=== PATIENT | female | born 1935 | race Caucasian/White ===

== ENCOUNTER 2016-04-29 08:20 | Outpatient (CLI) | payer MEDICARE, BC ==
[~2016-04-29] VITALS: Ht 160 cm; Wt 74.5 kg
[~2016-04-29 08:20] MED LIST: ACTOS30 MG PO; AFEDITAB; AFEDITAB CR60 MG PO; ALDACTONE 25MG25 M1 PO; ALDACTONE50 MG PO; ASPIRIN 81M81 MG/TA2 PO; ASPIRIN E.C. 8181 MG PO; BIOTIN1000 MCG PO; BYETTA; CALCIMIN-300300 MG PO; CALCIUM 1200 601 SGL PO; CALCIUM600 M2 PO; CENTRUM SILVER1 TA1 PO; CENTRUM SILVER1 TA3 PO; CENTRUM SILVER1 TAB PO; D BIOTIN PO; DIOVAN HCT 12.51 TA1 PO; DIOVAN/HCT 12.51 TA1 PO; DIOVAN160 MG PO; DIOVAN320 MG PO; FLEXERIL 1010 MG/TAB PO; FLEXERIL5 MG PO; FOLIC ACID 40400 MCG PO; FUROSEMIDE20 MG PO; GLUCOSAMINE; GLUCOSAMINE & C1 TA1 PO; GLUCOSAMINE & C1 TER PO; HUMULIN 70/30 PE3 ML SC; HUMULIN 70/3100 U/ML IJ; HUMULIN 70/3100 U/ML SC; IMODIUM 2MG CAPS2 MG PO; INSHUMULIN7030 SC; INSULIN 70/3100 U/ML SQ; IRON325 M1 PO; LASIX 20MG TABL20 MG PO; LASIX20 MG PO; LEVSIN0.125 M1 PO; METOPROLOL25 MG PO; METOPROLOL50 MG PO; MUCINEX 60600 MG/TA1 PO; MULTIPLE VITAMI1 CAP PO; MVI; NAPROSYN375 MG PO; NORVASC 10MG10 MG PO; NOVOLOG MIX 70/10 ML SQ; PROTONIX 40MG T40 MG PO; ROXICODONE 55 MG/TAB PO; SOME ANTIBIOTIC; SPIRONOLACTONE50 MG PO; TAMIFLU 75MG75 MG PO; TOPROL XL 25MG25 MG PO; TOPROL XL 50MG50 MG PO; TOPROL XL25 MG PO; TUSS PO; VICODIN 5/5001 UDTAB PO; VITAMIN C500 MG PO; VITAMIN D 1001000 IU PO; VITAMIN D32000 IU PO; ZITHROMAX 250M250 MG PO; ZYLOPRIM 100MG100 MG PO; ZYLOPRIM 300MG300 MG PO
[2016-04-29] MEDS ORDERED: ZANTAC 150150 MG PO (09:03)
[2016-04-29 09:07] VITALS: BP 153/84; PULSE 71
[2016-04-29 09:27] LABS: HEMATOCRIT 30.7 % (37.0-47.0); HEMOGLOBIN 9.9 g/dl (12.5-16.0); INR 1.2 (0.8-3.0); MEAN CELL VOLUME 93 fl (80.0-100.0); MEAN CORPUSCULAR HEMOGLOBIN 30 pg (27.0-31.0); MEAN CORPUSCULAR HGB CONC 32 g/dl (33.0-37.0); MEAN PLATELET VOLUME 11.1 fl (7.4-10.4); PLATELET COUNT 91 K/mm3 (130-400); PROTHROMBIN TIME 13.5 SECONDS (9.7-12.8); RED BLOOD COUNT 3.32 M/mm3 (4.10-5.30); REDCELL DISTRIBUTION WIDTH-CV 13.9 % (11.5-14.5); WHITE BLOOD COUNT 4.6 K/mm3 (4.8-10.8)
[2016-04-29 12:15] VITALS: BP 116/57; PULSE 70; TEMP 98.2
[2016-04-29 14:30] VITALS: BP 172/53; PULSE 70; TEMP 98.2
[2016-10-01] MEDS ORDERED: ZYLOPRIM 100MG100 MG PO (09:27)
== END 2016-04-29 15:00 | disposition home or self-care (01) ==
LOC: COL.RAD 08:20
PROVIDERS: Nurse Practitioner Family
DX: K74.69 Other cirrhosis of liver (principal)
CPT/HCPCS: P9047

== ENCOUNTER → 2016-07-09 | Outpatient (CLI) | payer MEDICARE, BC ==
[~2016-07-09] VITALS: Ht 160 cm; Wt 77.7 kg
[~2016-07-09] MED LIST changes: +OMEGA-3 FISH1000 MG PO; +ZANTAC 150150 MG PO
[2016-07-09 13:34] VITALS: BP 156/86; PULSE 74
[2016-07-09 13:55] LABS: INR 1.2 (0.8-3.0); PROTHROMBIN TIME 13.6 SECONDS (9.7-12.8)
[2016-07-09 15:51] VITALS: BP 165/82; PULSE 76
== END ==
LOC: COL.RAD 13:08
PROVIDERS: Nurse Practitioner Family
DX: R18.8 Other ascites (principal); K74.69 Other cirrhosis of liver
CPT/HCPCS: 19804

== ENCOUNTER → 2016-08-26 | Outpatient (CLI) | payer MEDICARE, BC ==
[~2016-08-26] VITALS: Ht 160 cm; Wt 77.3 kg
[2016-08-26 09:22] VITALS: BP 165/82; PULSE 74
[2016-08-26 10:50] VITALS: BP 146/60; PULSE 65
== END ==
LOC: COL.RAD 09:00
DX: R18.8 Other ascites (principal)
CPT/HCPCS: 19804

== ENCOUNTER → 2016-10-01 | Outpatient (CLI) | payer MEDICARE, BC ==
[~2016-10-01] VITALS: Ht 160 cm; Wt 75.0 kg
[2016-10-01 09:30] VITALS: BP 175/83; PULSE 61
[2016-10-01 10:55] VITALS: BP 161/68; PULSE 66
== END ==
LOC: COL.RAD 09:08
DX: R18.8 Other ascites (principal)
CPT/HCPCS: 19804

== ENCOUNTER → 2016-11-01 | Outpatient (CLI) | payer MEDICARE, BC ==
[~2016-11-01] VITALS: Ht 160 cm; Wt 72.8 kg
[2016-11-01 08:49] VITALS: BP 142/77; PULSE 62
[2016-11-01 11:50] VITALS: BP 152/79; PULSE 62
== END ==
LOC: COL.RAD 08:33
DX: R18.8 Other ascites (principal)
CPT/HCPCS: 19804

== ENCOUNTER 2016-11-14 11:53 | Inpatient (IN) | payer MEDICARE, BC ==
[2016-11-14] VITALS (283 sets, daily range): BP systolic 120–143; BP diastolic 48–63; PULSE 70–71; TEMP 97–98.1; O2SAT 79–100
[~2016-11-14] VITALS: Ht 160 cm; Wt 67.7 kg
[~2016-11-14 11:53] MED LIST changes: -OMEGA-3 FISH1000 MG PO
[2016-11-14 12:58] LABS: BASO % 0.2 % (0.0-2.0); EOS % 0.1 % (0-4.0); GRAN # 8.8 (1.4-6.5); GRAN % 84.5 % (42.2-75.2); LYMPH % 9.5 % (20.0-51.0); MEAN CELL VOLUME 91 fl (80.0-100.0); MEAN CORPUSCULAR HGB CONC 34 g/dl (33.0-37.0); MEAN PLATELET VOLUME 11.8 fl (7.4-10.4); MONO # 0.5 (0.1-0.6); MONO % 5.2 % (1.7-9.3); PLATELET COUNT 94 K/mm3 (130-400); RED BLOOD COUNT 3.74 M/mm3 (4.10-5.30); REDCELL DISTRIBUTION WIDTH-CV 15.2 % (11.5-14.5); WHITE BLOOD COUNT 10.4 K/mm3 (4.8-10.8)
[2016-11-14 13:00] LABS: HEMATOCRIT 34.2 % (37.0-47.0); HEMOGLOBIN 11.6 g/dl (12.5-16.0); MEAN CORPUSCULAR HEMOGLOBIN 31 pg (27.0-31.0)
[2016-11-14 13:07] LABS: ADJUSTED CALCIUM 9.3 mg/dL (8.4-10.2); ALBUMIN 3.5 gm/dL (3.5-5.0); BILIRUBIN,TOTAL 1.2 mg/dL (0.0-1.0); CALCIUM 8.9 mg/dL (8.4-10.2); CREATININE, serum 3.16 mg/dL (0.52-1.25); TOTAL PROTEIN 6.8 gm/dL (6.4-8.2)
[2016-11-14 15:26] LABS: HYALINE CAST >12 /lpf; PH 5 (5-8); SQUAMOUS EPITHELIAL >50 /hpf; URINE APPEARANCE Turbid; URINE BACTERIA Moderate /hpf; URINE BILIRUBIN Negative (NEGATIVE); URINE BLOOD 1+ (NEGATIVE); URINE COLOR Amber; URINE GLUCOSE Negative (NEGATIVE); URINE KETONE Negative (NEGATIVE); URINE UROBILINOGEN Negative (NEGATIVE); URINE WBC >50 /hpf
[2016-11-14 16:26] LABS: INR 1.1 (0.8-3.0); PROTHROMBIN TIME 12.6 SECONDS (9.7-12.8)
[2016-11-14 16:29] LABS: PARTIAL THROMBOPLASTIN TIME 20.8 SECONDS (26.0-37.0)
[2016-11-14] MEDS ORDERED: OMEGA-3 FISH1000 MG PO (19:54)
[2016-11-15] VITALS (1293 sets, daily range): BP systolic 105–122; BP diastolic 45–52; PULSE 69–79; TEMP 97.3–98.7; O2SAT 73–100
[2016-11-15 05:59] LABS: MEAN CELL VOLUME 95 fl (80.0-100.0); MEAN CORPUSCULAR HGB CONC 33 g/dl (33.0-37.0); MEAN PLATELET VOLUME 11.4 fl (7.4-10.4); RED BLOOD COUNT 2.93 M/mm3 (4.10-5.30); REDCELL DISTRIBUTION WIDTH-CV 15.4 % (11.5-14.5); WHITE BLOOD COUNT 4.8 K/mm3 (4.8-10.8)
[2016-11-15 06:06] LABS: ADJUSTED CALCIUM 8.8 mg/dL (8.4-10.2); ALBUMIN 2.6 gm/dL (3.5-5.0); BILIRUBIN,TOTAL 0.7 mg/dL (0.0-1.0); CALCIUM 7.7 mg/dL (8.4-10.2); CREATININE, serum 2.88 mg/dL (0.52-1.25); HEMATOCRIT 27.7 % (37.0-47.0); MEAN CORPUSCULAR HEMOGLOBIN 31 pg (27.0-31.0); POTASSIUM 4.9 mmol/L (3.4-5.0); TOTAL PROTEIN 5.5 gm/dL (6.4-8.2)
[2016-11-15 06:07] LABS: INR 1.3 (0.8-3.0); PLATELET COUNT 48 K/mm3 (130-400); PROTHROMBIN TIME 14.3 SECONDS (9.7-12.8)
[2016-11-15 06:08] LABS: ADD PATHOLOGY DIFF REVIEW NO
[2016-11-15 06:45] LABS: BAND 19 % (0-10); EOSINOPHIL 1 % (0-4); NEUTROPHILS 73 % (42.0-75.2); PLATELET ESTIMATE DECREASED (NORMAL); TOTAL CELLS COUNTED 100
[2016-11-15 18:49] LABS: CALCIUM 7.8 mg/dL (8.4-10.2); CREATININE, serum 2.84 mg/dL (0.52-1.25); POTASSIUM 4.3 mmol/L (3.4-5.0)
[2016-11-16] VITALS (663 sets, daily range): BP systolic 110–149; BP diastolic 47–75; PULSE 63–76; TEMP 97.4–98.4; O2SAT 69–100
[2016-11-16 09:16] LABS: BASO % 0.2 % (0.0-2.0); GRAN # 4.8 (1.4-6.5); GRAN % 85.8 % (42.2-75.2); HEMATOCRIT 27.8 % (37.0-47.0); HEMOGLOBIN 9.4 g/dl (12.5-16.0); LYMPH # 0.4 (1.2-3.4); LYMPH % 6.3 % (20.0-51.0); MEAN CELL VOLUME 91 fl (80.0-100.0); MEAN CORPUSCULAR HEMOGLOBIN 31 pg (27.0-31.0); MEAN CORPUSCULAR HGB CONC 34 g/dl (33.0-37.0); MEAN PLATELET VOLUME 11.6 fl (7.4-10.4); MONO # 0.4 (0.1-0.6); MONO % 7.2 % (1.7-9.3); PLATELET COUNT 61 K/mm3 (130-400); RED BLOOD COUNT 3.05 M/mm3 (4.10-5.30); REDCELL DISTRIBUTION WIDTH-CV 15.3 % (11.5-14.5); WHITE BLOOD COUNT 5.6 K/mm3 (4.8-10.8)
[2016-11-16 09:31] LABS: ADJUSTED CALCIUM 8.7 mg/dL (8.4-10.2); ALBUMIN 2.5 gm/dL (3.5-5.0); BILIRUBIN,TOTAL 0.6 mg/dL (0.0-1.0); CALCIUM 7.5 mg/dL (8.4-10.2); CREATININE, serum 2.65 mg/dL (0.52-1.25); POTASSIUM 4.5 mmol/L (3.4-5.0); TOTAL PROTEIN 5.5 gm/dL (6.4-8.2)
[2016-11-16 19:00] LABS: CALCIUM 7.8 mg/dL (8.4-10.2); CREATININE, serum 2.76 mg/dL (0.52-1.25); POTASSIUM 4.8 mmol/L (3.4-5.0)
[2016-11-17 01:45] VITALS: BP 115/45; PULSE 73; TEMP 98.2
[2016-11-17 05:15] VITALS: BP 134/61; PULSE 73; TEMP 97.7
[2016-11-17 06:40] LABS: BASO % 0.3 % (0.0-2.0); EOS % 0.5 % (0-4.0); GRAN % 80.2 % (42.2-75.2); LYMPH # 0.4 (1.2-3.4); LYMPH % 9.5 % (20.0-51.0); MEAN CELL VOLUME 90 fl (80.0-100.0); MEAN CORPUSCULAR HGB CONC 34 g/dl (33.0-37.0); MEAN PLATELET VOLUME 12.3 fl (7.4-10.4); MONO # 0.3 (0.1-0.6); PLATELET COUNT 55 K/mm3 (130-400); RED BLOOD COUNT 2.71 M/mm3 (4.10-5.30); WHITE BLOOD COUNT 3.8 K/mm3 (4.8-10.8)
[2016-11-17 06:46] LABS: HEMATOCRIT 24.5 % (37.0-47.0); HEMOGLOBIN 8.3 g/dl (12.5-16.0); MEAN CORPUSCULAR HEMOGLOBIN 31 pg (27.0-31.0)
[2016-11-17 06:50] LABS: ADJUSTED CALCIUM 8.9 mg/dL (8.4-10.2); ALBUMIN 2.2 gm/dL (3.5-5.0); BILIRUBIN,TOTAL 0.4 mg/dL (0.0-1.0); CALCIUM 7.5 mg/dL (8.4-10.2); CREATININE, serum 2.65 mg/dL (0.52-1.25); POTASSIUM 4.5 mmol/L (3.4-5.0)
[2016-11-17 09:28] VITALS: BP 111/85; PULSE 72; TEMP 97.6
[2016-11-17 11:41] LABS: PH 5 (5-8); SQUAMOUS EPITHELIAL 0-2 /hpf; URINE APPEARANCE Cloudy; URINE BACTERIA Rare /hpf; URINE BILIRUBIN Negative (NEGATIVE); URINE BLOOD 2+ (NEGATIVE); URINE COLOR Yellow; URINE GLUCOSE Negative (NEGATIVE); URINE KETONE Negative (NEGATIVE); URINE RBC 20-50 /hpf; URINE UROBILINOGEN Negative (NEGATIVE); URINE WBC 20-50 /hpf
[2016-11-17 13:47] VITALS: BP 167/66; PULSE 71; TEMP 98.1
[2016-11-17 17:23] VITALS: BP 157/66; PULSE 78; TEMP 98.4
[2016-11-17 22:16] VITALS: BP 129/59; PULSE 76; TEMP 98.2
[2016-11-18 06:03] VITALS: BP 125/57; PULSE 71; TEMP 98.4
[2016-11-18 09:19] LABS: EOS # 0.1 (0.0-0.7); EOS % 2.3 % (0-4.0); GRAN # 3.4 (1.4-6.5); GRAN % 80.1 % (42.2-75.2); LYMPH # 0.4 (1.2-3.4); LYMPH % 8.2 % (20.0-51.0); MEAN CELL VOLUME 92 fl (80.0-100.0); MEAN CORPUSCULAR HGB CONC 33 g/dl (33.0-37.0); MEAN PLATELET VOLUME 12.4 fl (7.4-10.4); MONO # 0.4 (0.1-0.6); MONO % 8.9 % (1.7-9.3); PLATELET COUNT 64 K/mm3 (130-400); REDCELL DISTRIBUTION WIDTH-CV 14.9 % (11.5-14.5); WHITE BLOOD COUNT 4.3 K/mm3 (4.8-10.8)
[2016-11-18 09:21] LABS: HEMATOCRIT 27.7 % (37.0-47.0); HEMOGLOBIN 9.2 g/dl (12.5-16.0); MEAN CORPUSCULAR HEMOGLOBIN 31 pg (27.0-31.0)
[2016-11-18 09:25] VITALS: BP 137/70; PULSE 73; TEMP 98.2
[2016-11-18 09:35] LABS: ADJUSTED CALCIUM 8.7 mg/dL (8.4-10.2); ALBUMIN 2.5 gm/dL (3.5-5.0); BILIRUBIN,TOTAL 0.5 mg/dL (0.0-1.0); CALCIUM 7.5 mg/dL (8.4-10.2); CREATININE, serum 2.4 mg/dL (0.52-1.25); TOTAL PROTEIN 5.6 gm/dL (6.4-8.2)
[2016-11-18 13:14] VITALS: BP 147/67; PULSE 79; TEMP 97.8
== END 2016-11-18 14:43 | disposition home or self-care (01) | DRG 330 ==
LOC: COL.ER 11:53 → ICU 19:05 → IMCU 11-16 08:34 → ICU 11-16 08:34 → SURG 11-16 12:26
PROVIDERS: Family Medicine; Internal Medicine; Surgery
PROC: 0W9G0ZZ Drainage of Peritoneal Cavity, Open Approach (ICD-10-PCS; 2016-11-14)
PROC: 0DB80ZZ Excision of Small Intestine, Open Approach (ICD-10-PCS; principal; 2016-11-14 17:30)
PROC: 0WQF0ZZ Repair Abdominal Wall, Open Approach (ICD-10-PCS; 2016-11-14 17:30)
DX: K43.6 Other and unspecified ventral hernia with obstruction, without gangrene (principal); N18.4 Chronic kidney disease, stage 4 (severe); E87.2 Acidosis; N17.9 Acute kidney failure, unspecified; R18.8 Other ascites; E87.1 Hypo-osmolality and hyponatremia; N39.0 Urinary tract infection, site not specified; Z66 Do not resuscitate; K72.90 Hepatic failure, unspecified without coma; I12.9 Hypertensive chronic kidney disease with stage 1 through stage 4 chronic kidney disease, or unspecified chronic kidney disease; E11.22 Type 2 diabetes mellitus with diabetic chronic kidney disease; D50.0 Iron deficiency anemia secondary to blood loss (chronic); K74.69 Other cirrhosis of liver; D63.1 Anemia in chronic kidney disease
CPT/HCPCS: 99222; 99223; 99232-AI; A4217; A4315; J0690; J0696; J1100; J1170; J1815; J2060; J2270; J2370; J2405; J2704; J2710; J3010; J7030; J7050; J7131

== ENCOUNTER → 2016-11-14 | Day surgery (SDC) | payer MEDICARE, BC | LOC: SDCO 17:32 | DX: K43.6 Other and unspecified ventral hernia with obstruction, without gangrene (principal); R18.8 Other ascites; K74.69 Other cirrhosis of liver; N17.9 Acute kidney failure, unspecified; R73.9 Hyperglycemia, unspecified; E87.2 Acidosis; I10 Essential (primary) hypertension; L83 Acanthosis nigricans; I12.9 Hypertensive chronic kidney disease with stage 1 through stage 4 chronic kidney disease, or unspecified chronic kidney disease; E11.22 Type 2 diabetes mellitus with diabetic chronic kidney disease; N18.4 Chronic kidney disease, stage 4 (severe); N39.0 Urinary tract infection, site not specified; Z66 Do not resuscitate | CPT/HCPCS: 99222 ==

== ENCOUNTER 2016-11-21 12:23 | Observation (INO) | payer MEDICARE, BC ==
[~2016-11-21] VITALS: Ht 160 cm; Wt 64.1 kg
[~2016-11-21 12:23] MED LIST changes: +OMEGA-3 FISH1000 MG PO
[2016-11-21 13:18] LABS: BASO % 0.2 % (0.0-2.0); EOS # 0.1 (0.0-0.7); GRAN # 4.9 (1.4-6.5); GRAN % 79.9 % (42.2-75.2); LYMPH # 0.6 (1.2-3.4); LYMPH % 9.3 % (20.0-51.0); MEAN CELL VOLUME 94 fl (80.0-100.0); MEAN CORPUSCULAR HGB CONC 32 g/dl (33.0-37.0); MEAN PLATELET VOLUME 11.9 fl (7.4-10.4); MONO # 0.5 (0.1-0.6); MONO % 7.8 % (1.7-9.3); PLATELET COUNT 103 K/mm3 (130-400); RED BLOOD COUNT 3.28 M/mm3 (4.10-5.30); REDCELL DISTRIBUTION WIDTH-CV 14.6 % (11.5-14.5); WHITE BLOOD COUNT 6.1 K/mm3 (4.8-10.8)
[2016-11-21 13:21] LABS: HEMATOCRIT 30.9 % (37.0-47.0); MEAN CORPUSCULAR HEMOGLOBIN 30 pg (27.0-31.0)
[2016-11-21 13:35] VITALS: BP 152/74; PULSE 99
[2016-11-21 13:40] LABS: PH 5 (5-8); URINE APPEARANCE Hazy; URINE BACTERIA None Seen /hpf; URINE BILIRUBIN Negative (NEGATIVE); URINE BLOOD 1+ (NEGATIVE); URINE COLOR Yellow; URINE GLUCOSE Negative (NEGATIVE); URINE KETONE Negative (NEGATIVE); URINE UROBILINOGEN Negative (NEGATIVE); URINE WBC None Seen /hpf
[2016-11-21 13:40] LABS: ALBUMIN 2.8 gm/dL (3.5-5.0); BILIRUBIN,TOTAL 0.6 mg/dL (0.0-1.0); CREATININE, serum 2.36 mg/dL (0.52-1.25); MAGNESIUM 1.6 mg/dL (1.6-2.3); PHOSPHOROUS 3.8 mg/dL (2.5-4.5); POTASSIUM 4.2 mmol/L (3.4-5.0); TOTAL PROTEIN 5.9 gm/dL (6.4-8.2)
[2016-11-21 14:08] LABS: INR 1.1 (0.8-3.0); PROTHROMBIN TIME 12.5 SECONDS (9.7-12.8)
[2016-11-21 14:11] LABS: PARTIAL THROMBOPLASTIN TIME 29.5 SECONDS (26.0-37.0)
[2016-11-21 17:29] VITALS: BP 144/73; PULSE 93
[2016-11-21 21:12] VITALS: BP 146/69; PULSE 91; TEMP 97.7
[2016-11-22] VITALS (7 sets, daily range): BP systolic 136–180; BP diastolic 50–73; PULSE 70–107; TEMP 97.5–98.5
[2016-11-22 06:52] LABS: BASO % 0.3 % (0.0-2.0); EOS # 0.1 (0.0-0.7); EOS % 3.3 % (0-4.0); GRAN % 76.5 % (42.2-75.2); LYMPH # 0.4 (1.2-3.4); LYMPH % 10.2 % (20.0-51.0); MEAN CELL VOLUME 94 fl (80.0-100.0); MEAN CORPUSCULAR HGB CONC 32 g/dl (33.0-37.0); MEAN PLATELET VOLUME 11.5 fl (7.4-10.4); MONO # 0.3 (0.1-0.6); MONO % 8.7 % (1.7-9.3); PLATELET COUNT 91 K/mm3 (130-400); RED BLOOD COUNT 2.75 M/mm3 (4.10-5.30); REDCELL DISTRIBUTION WIDTH-CV 14.5 % (11.5-14.5); WHITE BLOOD COUNT 3.9 K/mm3 (4.8-10.8)
[2016-11-22 06:58] LABS: HEMATOCRIT 25.7 % (37.0-47.0); HEMOGLOBIN 8.3 g/dl (12.5-16.0); MEAN CORPUSCULAR HEMOGLOBIN 30 pg (27.0-31.0)
[2016-11-22 07:01] LABS: ADJUSTED CALCIUM 8.9 mg/dL (8.4-10.2); ALBUMIN 2.3 gm/dL (3.5-5.0); BILIRUBIN,TOTAL 0.4 mg/dL (0.0-1.0); CALCIUM 7.5 mg/dL (8.4-10.2); CREATININE, serum 2.26 mg/dL (0.52-1.25); POTASSIUM 4.3 mmol/L (3.4-5.0); TOTAL PROTEIN 5.2 gm/dL (6.4-8.2)
[2016-11-22 14:00] LABS: PERITONEAL FLUID RBC 1000 /mm3 (0-0)
[2016-11-23 03:40] VITALS: BP 126/56; PULSE 71; TEMP 98.2
[2016-11-23 07:24] LABS: EOS # 0.1 (0.0-0.7); GRAN # 2.3 (1.4-6.5); GRAN % 76.4 % (42.2-75.2); LYMPH # 0.3 (1.2-3.4); LYMPH % 11.1 % (20.0-51.0); MEAN CELL VOLUME 95 fl (80.0-100.0); MEAN CORPUSCULAR HGB CONC 32 g/dl (33.0-37.0); MEAN PLATELET VOLUME 11.6 fl (7.4-10.4); MONO # 0.3 (0.1-0.6); MONO % 8.8 % (1.7-9.3); PLATELET COUNT 87 K/mm3 (130-400); RED BLOOD COUNT 2.47 M/mm3 (4.10-5.30); REDCELL DISTRIBUTION WIDTH-CV 14.2 % (11.5-14.5)
[2016-11-23 07:32] LABS: HEMATOCRIT 23.4 % (37.0-47.0); HEMOGLOBIN 7.5 g/dl (12.5-16.0); MEAN CORPUSCULAR HEMOGLOBIN 30 pg (27.0-31.0)
[2016-11-23 07:44] LABS: CALCIUM 7.8 mg/dL (8.4-10.2); CREATININE, serum 2.21 mg/dL (0.52-1.25); POTASSIUM 4.2 mmol/L (3.4-5.0)
[2016-11-23 08:13] VITALS: BP 144/55; PULSE 65; TEMP 97.9
[2016-11-23] MEDS ORDERED: ALDACTONE50 MG PO (10:00)
== END 2016-11-23 13:35 | disposition home health service (06) ==
LOC: COL.ER 12:23 → MEDICAL 18:31
PROVIDERS: Emergency Medicine; Family Medicine; Physician Assistant
DX: R18.8 Other ascites (principal); D64.9 Anemia, unspecified; D69.6 Thrombocytopenia, unspecified; I10 Essential (primary) hypertension; K72.90 Hepatic failure, unspecified without coma; M10.9 Gout, unspecified; E86.0 Dehydration; K29.70 Gastritis, unspecified, without bleeding; R53.81 Other malaise; N18.9 Chronic kidney disease, unspecified; Z90.710 Acquired absence of both cervix and uterus; Z90.49 Acquired absence of other specified parts of digestive tract
CPT/HCPCS: 99222-AI; 99233-AI; 99239; G0378; G8978-GP; G8979-GP; J1650; J2405; J7030; P9047

== ENCOUNTER → 2016-12-31 | Outpatient (CLI) | payer MEDICARE, BC ==
[~2016-12-31] VITALS: Ht 160 cm; Wt 60.9 kg
[~2016-12-31] MED LIST changes: +PROBIOTIC FORMU1 CAP PO; +[UNRECOGNIZED DRUG - OTHER] PO
[2016-12-31 09:31] VITALS: BP 124/68; PULSE 75
[2016-12-31 10:55] VITALS: BP 125/64; PULSE 76
== END ==
LOC: COL.RAD 09:10
DX: R18.8 Other ascites (principal)

== ENCOUNTER → 2017-01-25 | Outpatient (CLI) | payer MEDICARE, BC ==
[2017-01-25 13:13] VITALS: BP 127/77; PULSE 85
[2017-01-25 15:10] VITALS: BP 123/58; PULSE 76
== END ==
LOC: COL.RAD 12:50
DX: K74.69 Other cirrhosis of liver (principal); R18.8 Other ascites; R27.0 Ataxia, unspecified; I63.9 Cerebral infarction, unspecified; G31.9 Degenerative disease of nervous system, unspecified; R06.00 Dyspnea, unspecified; R63.8 Other symptoms and signs concerning food and fluid intake

== ENCOUNTER → 2017-02-09 | Outpatient (CLI) | payer MEDICARE, BC ==
[~2017-02-09] VITALS: Ht 160 cm; Wt 67.9 kg
[2017-02-09 13:03] VITALS: BP 132/74; PULSE 70
[2017-02-09 14:45] VITALS: BP 137/60; PULSE 69
== END ==
LOC: COL.RAD 12:48
DX: K74.69 Other cirrhosis of liver (principal); R18.8 Other ascites

== ENCOUNTER → 2017-02-28 | Outpatient (CLI) | payer MEDICARE, BC ==
[~2017-02-28] VITALS: Ht 160 cm; Wt 70.8 kg
[~2017-02-28] MED LIST changes: +LASIX 40MG TABL40 MG PO
[2017-02-28 11:21] VITALS: BP 146/60; PULSE 74
[2017-02-28 13:25] VITALS: BP 124/65; PULSE 70
== END ==
LOC: COL.RAD 11:08
DX: R18.8 Other ascites (principal)
CPT/HCPCS: 19804

== ENCOUNTER → 2017-03-23 | Outpatient (CLI) | payer MEDICARE, BC ==
[~2017-03-23] VITALS: Ht 160 cm; Wt 71.7 kg
[2017-03-23 13:20] VITALS: BP 111/66; PULSE 74
[2017-03-23 15:40] VITALS: BP 112/58; PULSE 69
== END ==
LOC: COL.RAD 12:57
DX: K74.69 Other cirrhosis of liver (principal)
CPT/HCPCS: 19804

== ENCOUNTER 2017-04-10 12:05 | Inpatient (IN) | payer MEDICARE, BC ==
[~2017-04-10] VITALS: Ht 160 cm; Wt 66.0 kg
[2017-04-10 12:53] LABS: BASO % 0.2 % (0.0-2.0); EOS % 0.5 % (0-4.0); GRAN # 4.3 (1.4-6.5); GRAN % 73.2 % (42.2-75.2); LYMPH # 1.2 (1.2-3.4); LYMPH % 19.9 % (20.0-51.0); MEAN CELL VOLUME 94 fl (80.0-100.0); MEAN CORPUSCULAR HGB CONC 33 g/dl (33.0-37.0); MONO # 0.3 (0.1-0.6); MONO % 5.7 % (1.7-9.3); PLATELET COUNT 107 K/mm3 (130-400); REDCELL DISTRIBUTION WIDTH-CV 14.7 % (11.5-14.5)
[2017-04-10 12:54] LABS: HEMATOCRIT 32.9 % (37.0-47.0); HEMOGLOBIN 10.8 g/dl (12.5-16.0); MEAN CORPUSCULAR HEMOGLOBIN 31 pg (27.0-31.0)
[2017-04-10 12:58] LABS: PROTHROMBIN TIME 11.3 SECONDS (9.7-12.8)
[2017-04-10 13:02] LABS: PARTIAL THROMBOPLASTIN TIME 16.6 SECONDS (26.0-37.0)
[2017-04-10 13:05] LABS: ALBUMIN 3.1 gm/dL (3.5-5.0); BILIRUBIN,TOTAL 0.5 mg/dL (0.0-1.0); CALCIUM 8.5 mg/dL (8.4-10.2); CREATININE, serum 3.13 mg/dL (0.52-1.25); POTASSIUM 4.4 mmol/L (3.4-5.0); TOTAL PROTEIN 6.5 gm/dL (6.4-8.2)
[2017-04-10 13:18] LABS: TROPONIN-I 0.133 ng/mL (0.000-0.034)
[2017-04-10] MEDS ORDERED: LASIX 20MG TABL20 MG PO (13:38)
[2017-04-10] MEDS ORDERED: TOPROL XL 25MG25 MG PO (13:40)
[2017-04-10] MEDS ORDERED: VENTOLIN0.09 MG IH (13:42)
[2017-04-10 16:00] VITALS: BP 105/51; PULSE 89; TEMP 98
[2017-04-10 16:28] VITALS: BP 124/67; PULSE 87; TEMP 98.2
[2017-04-10 20:00] VITALS: BP 103/55; PULSE 75; TEMP 98.3
[2017-04-11 02:07] VITALS: BP 118/43; PULSE 81; TEMP 98.4
[2017-04-11 05:19] VITALS: BP 109/43; PULSE 84; TEMP 97
[2017-04-11 07:54] LABS: BASO % 0.3 % (0.0-2.0); EOS % 0.8 % (0-4.0); GRAN # 2.6 (1.4-6.5); GRAN % 71.6 % (42.2-75.2); LYMPH # 0.7 (1.2-3.4); LYMPH % 19.9 % (20.0-51.0); MEAN CELL VOLUME 94 fl (80.0-100.0); MEAN CORPUSCULAR HGB CONC 33 g/dl (33.0-37.0); MEAN PLATELET VOLUME 11.5 fl (7.4-10.4); MONO # 0.3 (0.1-0.6); MONO % 7.1 % (1.7-9.3); PLATELET COUNT 73 K/mm3 (130-400); RED BLOOD COUNT 2.91 M/mm3 (4.10-5.30); REDCELL DISTRIBUTION WIDTH-CV 14.6 % (11.5-14.5)
[2017-04-11 08:01] LABS: CALCIUM 8.1 mg/dL (8.4-10.2); CREATININE, serum 2.99 mg/dL (0.52-1.25); POTASSIUM 4.6 mmol/L (3.4-5.0)
[2017-04-11 08:04] LABS: HEMATOCRIT 27.4 % (37.0-47.0); HEMOGLOBIN 9.1 g/dl (12.5-16.0); MEAN CORPUSCULAR HEMOGLOBIN 31 pg (27.0-31.0)
[2017-04-11 10:05] VITALS: BP 118/48; PULSE 81; TEMP 98
[2017-04-11 13:45] VITALS: BP 121/54; PULSE 75; TEMP 98
[2017-04-11 17:36] VITALS: BP 141/75; PULSE 88; TEMP 97.1
[2017-04-11 22:14] VITALS: BP 115/68; PULSE 77; TEMP 97.4
[2017-04-12 02:22] VITALS: BP 145/51; PULSE 87; TEMP 98.5
[2017-04-12 06:00] VITALS: BP 113/37; PULSE 78; TEMP 98.2
[2017-04-12 09:07] VITALS: BP 122/59; PULSE 85; TEMP 97.5
[2017-04-12] MEDS ORDERED: LEVAQUIN 2250 MG/TAB PO (11:46)
[2017-04-12 14:41] VITALS: BP 124/74; PULSE 78; TEMP 98.5
== END 2017-04-12 17:53 | disposition home or self-care (01) | DRG 153 ==
LOC: COL.ER 12:05 → SURG 14:01 → EDBEDREQ 14:10 → SURG 14:58
PROVIDERS: Emergency Medicine; Internal Medicine
PROC: 0W9G3ZZ Drainage of Peritoneal Cavity, Percutaneous Approach (ICD-10-PCS; principal; 2017-04-11)
DX: J11.1 Influenza due to unidentified influenza virus with other respiratory manifestations (principal); N17.9 Acute kidney failure, unspecified; R18.8 Other ascites; E87.2 Acidosis; N18.4 Chronic kidney disease, stage 4 (severe); I12.9 Hypertensive chronic kidney disease with stage 1 through stage 4 chronic kidney disease, or unspecified chronic kidney disease; E11.22 Type 2 diabetes mellitus with diabetic chronic kidney disease; K72.90 Hepatic failure, unspecified without coma; K74.60 Unspecified cirrhosis of liver; E87.5 Hyperkalemia
CPT/HCPCS: OP; 99223-AI; 99232-AI; 99239; J1956

== ENCOUNTER → 2017-04-29 | Outpatient (CLI) | payer MEDICARE, BC ==
[~2017-04-29] MED LIST changes: +BIOTIN; +LEVAQUIN 2250 MG/TAB PO; +PLAVIX 75MG TAB75 MG PO; +VENTOLIN0.09 MG IH
== END ==
LOC: COL.RAD 11:44
DX: K74.69 Other cirrhosis of liver (principal); Z53.9 Procedure and treatment not carried out, unspecified reason

== ENCOUNTER → 2017-05-03 | Outpatient (CLI) | payer MEDICARE, BC ==
[~2017-05-03] VITALS: Ht 160 cm; Wt 68.6 kg
[2017-05-03 11:46] VITALS: BP 145/74; PULSE 77
[2017-05-03 13:11] VITALS: BP 130/65; PULSE 76
== END ==
LOC: COL.RAD 10:51
DX: K74.69 Other cirrhosis of liver (principal)
CPT/HCPCS: 19804

== ENCOUNTER → 2017-05-20 | Outpatient (CLI) | payer MEDICARE, BC ==
[~2017-05-20] VITALS: Ht 160 cm; Wt 30.6 kg
[~2017-05-20] MED LIST changes: +FLONASEALLERGY NS; +NATURE'S BLE1000 MCG PO
[2017-05-20 10:59] VITALS: BP 132/55; PULSE 70
[2017-05-20 13:20] VITALS: BP 129/64; PULSE 73
== END ==
LOC: COL.RAD 10:43
DX: R18.8 Other ascites (principal); K74.60 Unspecified cirrhosis of liver

== ENCOUNTER → 2017-06-06 | Outpatient (CLI) | payer MEDICARE, BC ==
[~2017-06-06] VITALS: Ht 160 cm; Wt 68.7 kg
[2017-06-06 12:11] VITALS: BP 143/76; PULSE 73
[2017-06-06 13:58] VITALS: BP 136/65; PULSE 80
== END ==
LOC: COL.RAD 11:47
DX: R18.8 Other ascites (principal)
CPT/HCPCS: 19804

== ENCOUNTER 2017-06-14 06:50 | Day surgery (SDC) | payer MEDICARE, BC ==
[~2017-06-14] VITALS: Ht 160 cm; Wt 63.6 kg
[2017-06-14] VITALS (7 sets, daily range): BP systolic 111–141; BP diastolic 57–69; PULSE 62–76; TEMP 97.6
[~2017-06-14 06:50] MED LIST changes: +MASON NATURAL2000 IU PO; -VITAMIN D32000 IU PO
== END 2017-06-14 10:35 | disposition home or self-care (01) ==
LOC: SDCO 06:50
DX: I85.01 Esophageal varices with bleeding (principal); K29.30 Chronic superficial gastritis without bleeding; K74.60 Unspecified cirrhosis of liver; K58.9 Irritable bowel syndrome, unspecified; I12.9 Hypertensive chronic kidney disease with stage 1 through stage 4 chronic kidney disease, or unspecified chronic kidney disease; E11.22 Type 2 diabetes mellitus with diabetic chronic kidney disease; N18.9 Chronic kidney disease, unspecified; Z90.49 Acquired absence of other specified parts of digestive tract; Z90.710 Acquired absence of both cervix and uterus; Z88.0 Allergy status to penicillin; Z88.1 Allergy status to other antibiotic agents; Z79.82 Long term (current) use of aspirin; Z79.51 Long term (current) use of inhaled steroids
CPT/HCPCS: OP; J2250; J2405; J3010; J7030

== ENCOUNTER → 2017-06-20 | Outpatient (CLI) | payer MEDICARE, BC | LOC: COL.RAD 09:14 | DX: I63.9 Cerebral infarction, unspecified (principal); G31.89 Other specified degenerative diseases of nervous system ==

== ENCOUNTER → 2017-06-24 | Outpatient (CLI) | payer MEDICARE, BC | LOC: COL.VAS 06-15 08:00 | DX: I65.23 Occlusion and stenosis of bilateral carotid arteries (principal); J90 Pleural effusion, not elsewhere classified; Z86.73 Personal history of transient ischemic attack (TIA), and cerebral infarction without residual deficits ==

== ENCOUNTER → 2017-06-29 | Outpatient (CLI) | payer MEDICARE, BC ==
[~2017-06-29] VITALS: Ht 160 cm; Wt 69.9 kg
[~2017-06-29] MED LIST changes: +CEPHALEXIN250 M1 PO
[2017-06-29 11:30] VITALS: BP 125/73; PULSE 82
[2017-06-29 13:25] VITALS: BP 123/62; PULSE 74
== END ==
LOC: COL.RAD 11:12
DX: R18.8 Other ascites (principal)

== ENCOUNTER 2017-07-14 12:02 | Emergency (ER) | payer MEDICARE, BC ==
[~2017-07-14] VITALS: Ht 160 cm; Wt 63.6 kg
[2017-07-14 12:04] VITALS: TEMP 97.7
[2017-07-14 12:39] LABS: BASO % 0.2 % (0.0-2.0); EOS # 0.1 (0.0-0.7); EOS % 2.1 % (0-4.0); GRAN # 5.1 (1.4-6.5); GRAN % 80.9 % (42.2-75.2); HEMATOCRIT 30.5 % (37.0-47.0); HEMOGLOBIN 10.3 g/dl (12.5-16.0); LYMPH # 0.7 (1.2-3.4); LYMPH % 11.4 % (20.0-51.0); MEAN CELL VOLUME 94 fl (80.0-100.0); MEAN CORPUSCULAR HEMOGLOBIN 32 pg (27.0-31.0); MEAN CORPUSCULAR HGB CONC 34 g/dl (33.0-37.0); MEAN PLATELET VOLUME 11.1 fl (7.4-10.4); MONO # 0.3 (0.1-0.6); MONO % 5.1 % (1.7-9.3); PLATELET COUNT 102 K/mm3 (130-400); RED BLOOD COUNT 3.25 M/mm3 (4.10-5.30); REDCELL DISTRIBUTION WIDTH-CV 15.2 % (11.5-14.5)
[2017-07-14 12:47] LABS: PARTIAL THROMBOPLASTIN TIME 31.5 SECONDS (26.0-37.0); PROTHROMBIN TIME 11.6 SECONDS (9.7-12.8)
[2017-07-14 12:50] LABS: ALBUMIN 2.9 gm/dL (3.5-5.0); BILIRUBIN,TOTAL 0.3 mg/dL (0.0-1.0); CALCIUM 8.3 mg/dL (8.4-10.2); CREATININE, serum 3.48 mg/dL (0.52-1.25); POTASSIUM 4.3 mmol/L (3.4-5.0); TOTAL PROTEIN 6.4 gm/dL (6.4-8.2)
[2017-07-14 13:10] LABS: TROPONIN-I 0.073 ng/mL (0.000-0.034)
[2017-07-14 14:33] LABS: MAGNESIUM 1.8 mg/dL (1.6-2.3)
[2017-07-14 17:53] VITALS: BP 117/68; PULSE 75
== END 2017-07-14 17:50 | disposition home or self-care (01) ==
LOC: COL.ER 12:02
PROVIDERS: Emergency Medicine
DX: N18.9 Chronic kidney disease, unspecified (principal); K70.31 Alcoholic cirrhosis of liver with ascites; R79.89 Other specified abnormal findings of blood chemistry; R06.00 Dyspnea, unspecified; Z79.82 Long term (current) use of aspirin; Z79.51 Long term (current) use of inhaled steroids
CPT/HCPCS: J2405; J7030

== ENCOUNTER → 2017-07-26 | Outpatient (CLI) | payer MEDICARE, BC ==
[~2017-07-26] VITALS: Ht 160 cm; Wt 66.5 kg
[~2017-07-26] MED LIST changes: +TYLENOL 325MG325 MG PO
[2017-07-26 09:12] VITALS: BP 140/72; PULSE 70
[2017-07-26 10:50] VITALS: BP 131/66; PULSE 71
== END ==
LOC: COL.RAD 08:31
DX: R18.8 Other ascites (principal)
CPT/HCPCS: 19804

== ENCOUNTER → 2017-08-12 | Outpatient (CLI) | payer MEDICARE, BC ==
[~2017-08-12] VITALS: Ht 160 cm; Wt 64.3 kg
[2017-08-12 09:17] VITALS: BP 135/74; PULSE 71
[2017-08-12 11:30] VITALS: BP 131/71; PULSE 70
== END ==
LOC: COL.RAD 08:51
DX: R18.8 Other ascites (principal)

== ENCOUNTER → 2017-08-26 | Outpatient (CLI) | payer MEDICARE, BC ==
[~2017-08-26] VITALS: Ht 160 cm; Wt 60.9 kg
[2017-08-26 10:20] VITALS: BP 126/64; PULSE 71
[2017-08-26 12:40] VITALS: BP 138/68; PULSE 70
== END ==
LOC: COL.RAD 09:27
DX: K76.89 Other specified diseases of liver (principal); K74.69 Other cirrhosis of liver; Z90.49 Acquired absence of other specified parts of digestive tract

== ENCOUNTER → 2017-09-09 | Outpatient (CLI) | payer MEDICARE, BC ==
[~2017-09-09] VITALS: Ht 160 cm; Wt 64.6 kg
[2017-09-09 09:09] VITALS: BP 120/60; PULSE 74
[2017-09-09 10:15] VITALS: BP 115/76; PULSE 81
== END ==
LOC: COL.RAD 08:52
DX: R18.8 Other ascites (principal)

== ENCOUNTER → 2017-09-26 | Outpatient (CLI) | payer MEDICARE, BC ==
[~2017-09-26] VITALS: Ht 160 cm; Wt 64.5 kg
[2017-09-26 13:23] VITALS: BP 130/75; PULSE 79
[2017-09-26 15:00] VITALS: BP 144/71; PULSE 76
== END ==
LOC: COL.RAD 12:57
DX: R18.8 Other ascites (principal)

== ENCOUNTER → 2017-10-07 | Outpatient (CLI) | payer MEDICARE, BC ==
[~2017-10-07] VITALS: Ht 160 cm; Wt 67.1 kg
[2017-10-07 08:39] VITALS: BP 146/75; PULSE 88
[2017-10-07 10:40] VITALS: BP 113/58; PULSE 80
== END ==
LOC: COL.RAD 08:23
DX: R18.8 Other ascites (principal)

== ENCOUNTER → 2017-10-27 | Outpatient (CLI) | payer MEDICARE, BC ==
[~2017-10-27] VITALS: Ht 160 cm; Wt 66.5 kg
[2017-10-27 13:47] VITALS: BP 120/65; PULSE 71
[2017-10-27 16:00] VITALS: BP 118/70; PULSE 75
== END ==
LOC: COL.RAD 12:59
DX: R18.8 Other ascites (principal)

== ENCOUNTER → 2017-11-03 | Outpatient (CLI) | payer MEDICARE, BC ==
[~2017-11-03] VITALS: Ht 160 cm; Wt 61.0 kg
[2017-11-03 10:07] VITALS: BP 116/56; PULSE 73
[2017-11-03 11:29] VITALS: BP 125/57; PULSE 71
== END ==
LOC: COL.RAD 11-02 09:00
DX: R18.8 Other ascites (principal)

== ENCOUNTER → 2017-11-21 | Outpatient (CLI) | payer MEDICARE, BC ==
[~2017-11-21] VITALS: Ht 160 cm; Wt 64.0 kg
[2017-11-21 09:45] VITALS: BP 128/69; PULSE 80
[2017-11-21 11:05] VITALS: BP 128/69; PULSE 80
== END ==
LOC: COL.RAD 08:53
DX: R18.8 Other ascites (principal)
CPT/HCPCS: 19804

== ENCOUNTER → 2017-12-02 | Outpatient (CLI) | payer MEDICARE, BC ==
[~2017-12-02] VITALS: Ht 160 cm; Wt 69.1 kg
[~2017-12-02] MED LIST changes: +BAKING SODA PO
[2017-12-02 09:10] VITALS: BP 123/71; PULSE 82
[2017-12-02 11:32] VITALS: BP 125/59; PULSE 73
== END ==
LOC: COL.RAD 08:50
DX: R18.8 Other ascites (principal)

== ENCOUNTER → 2017-12-16 | Outpatient (CLI) | payer MEDICARE, BC ==
[~2017-12-16] VITALS: Ht 160 cm; Wt 62.5 kg
[2017-12-16 08:40] VITALS: BP 124/62; PULSE 74
[2017-12-16 10:50] VITALS: BP 114/56; PULSE 72
== END ==
LOC: COL.RAD 08:25
DX: R18.8 Other ascites (principal)

== ENCOUNTER → 2017-12-30 | Outpatient (CLI) | payer MEDICARE, BC ==
[~2017-12-30] VITALS: Ht 160 cm; Wt 68.1 kg
[2017-12-30 13:04] VITALS: BP 127/72; PULSE 87
[2017-12-30 16:22] VITALS: BP 129/65; PULSE 82
== END ==
LOC: COL.RAD 12:40
DX: R18.8 Other ascites (principal)
CPT/HCPCS: 19804

== ENCOUNTER → 2018-01-12 | Outpatient (CLI) | payer MEDICARE, BC ==
[~2018-01-12] VITALS: Ht 160 cm; Wt 66.5 kg
[2018-01-12 09:09] VITALS: BP 130/69; PULSE 87
[2018-01-12 10:50] VITALS: BP 126/65; PULSE 81
== END ==
LOC: COL.RAD 08:32
DX: R18.8 Other ascites (principal)

== ENCOUNTER → 2018-01-27 | Outpatient (CLI) | payer MEDICARE, BC ==
[~2018-01-27] VITALS: Ht 160 cm; Wt 66.3 kg
[2018-01-27 09:02] VITALS: BP 130/70; PULSE 83
[2018-01-27 11:25] VITALS: BP 119/71; PULSE 85
== END ==
LOC: COL.RAD 08:42
DX: N26.1 Atrophy of kidney (terminal) (principal); R18.8 Other ascites; K76.6 Portal hypertension; R16.1 Splenomegaly, not elsewhere classified; Z90.49 Acquired absence of other specified parts of digestive tract

== ENCOUNTER → 2018-02-10 | Outpatient (CLI) | payer MEDICARE, BC ==
[~2018-02-10] VITALS: Ht 160 cm; Wt 65.0 kg
[2018-02-10 09:22] VITALS: BP 116/64; PULSE 81
[2018-02-10 11:05] VITALS: BP 109/47; PULSE 82
== END ==
LOC: COL.RAD 09:00
DX: R18.8 Other ascites (principal)

== ENCOUNTER → 2018-02-24 | Outpatient (CLI) | payer MEDICARE, BC ==
[~2018-02-24] VITALS: Ht 160 cm; Wt 65.7 kg
[2018-02-24 08:58] VITALS: BP 146/73; PULSE 85
[2018-02-24 10:20] VITALS: BP 126/41; PULSE 91
== END ==
LOC: COL.RAD 08:35
DX: R18.8 Other ascites (principal)

== ENCOUNTER → 2018-03-13 | Outpatient (CLI) | payer MEDICARE, BC ==
[~2018-03-13] VITALS: Ht 160 cm; Wt 65.4 kg
[2018-03-13 12:47] VITALS: BP 130/70; PULSE 98
[2018-03-13 13:50] VITALS: BP 128/60; PULSE 92
== END ==
LOC: COL.RAD 12:30
DX: R18.8 Other ascites (principal)

== ENCOUNTER → 2018-03-24 | Outpatient (CLI) | payer MEDICARE, BC ==
[~2018-03-24] VITALS: Ht 160 cm; Wt 63.0 kg
[2018-03-24 08:55] VITALS: BP 105/52; PULSE 87
[2018-03-24 10:04] VITALS: BP 125/62; PULSE 87
== END ==
LOC: COL.RAD 08:35
DX: R18.8 Other ascites (principal)

== ENCOUNTER 2018-04-07 08:44 | Outpatient (CLI) | payer MEDICARE, BC ==
[~2018-04-07] VITALS: Ht 160 cm; Wt 67.8 kg
[2018-04-07 09:07] VITALS: BP 149/71; PULSE 96
[2018-04-07 12:00] VITALS: BP 138/68; PULSE 82; TEMP 97.9
== END 2018-04-07 13:57 | disposition home or self-care (01) ==
LOC: COL.RAD 08:44
DX: R18.8 Other ascites (principal)
CPT/HCPCS: J2916

== ENCOUNTER 2018-04-07 11:00 | Outpatient (RCR) | payer MEDICARE, BC ==
[2018-03-24 10:34] VITALS: BP 123/47; PULSE 79; TEMP 98
[2018-03-27 12:30] VITALS: BP 127/52; PULSE 80; TEMP 97.8
[2018-03-29 12:04] VITALS: BP 120/49; PULSE 84; TEMP 98.2
[~2018-04-07] VITALS: Ht 160 cm; Wt 63.0 kg
== END 2018-04-07 13:30 | disposition home or self-care (01) ==
LOC: EUO 11:00
DX: N18.9 Chronic kidney disease, unspecified (principal); D63.1 Anemia in chronic kidney disease
CPT/HCPCS: J2916

== ENCOUNTER → 2018-04-21 | Outpatient (CLI) | payer MEDICARE, BC ==
[~2018-04-21] VITALS: Ht 160 cm; Wt 64.4 kg
[2018-04-21 13:05] VITALS: BP 155/77; PULSE 107
[2018-04-21 15:00] VITALS: BP 116/56; PULSE 97
--- NOTE | 2018-04-21 15:40 | NUR ---
PT TAKEN TO LOBBY TO WAIT FOR SON IN LAW. PT FEELS COMFORTABLE WAITING FOR SON IN LAW
== END ==
LOC: COL.RAD 12:45
DX: R18.8 Other ascites (principal)

== ENCOUNTER → 2018-05-05 | Outpatient (CLI) | payer MEDICARE, BC ==
[~2018-05-05] VITALS: Ht 160 cm; Wt 65.2 kg
[2018-05-05 13:03] VITALS: BP 118/71; PULSE 89
[2018-05-05 14:54] VITALS: BP 135/68; PULSE 90
== END ==
LOC: COL.RAD 04-28 12:45
DX: R18.8 Other ascites (principal)

== ENCOUNTER → 2018-05-19 | Outpatient (CLI) | payer MEDICARE, BC ==
[~2018-05-19] VITALS: Ht 160 cm; Wt 64.3 kg
[2018-05-19 13:08] VITALS: BP 128/72; PULSE 94
[2018-05-19 14:20] VITALS: BP 121/58; PULSE 85
== END ==
LOC: COL.RAD 12:45
DX: R18.8 Other ascites (principal)

== ENCOUNTER → 2018-06-02 | Outpatient (CLI) | payer MEDICARE, BC ==
[~2018-06-02] VITALS: Ht 160 cm; Wt 65.0 kg
[2018-06-02 13:08] VITALS: BP 101/62; PULSE 96
[2018-06-02 14:45] VITALS: BP 128/57; PULSE 100
--- NOTE | 2018-06-02 15:11 | NUR ---
PT TAKEN TO LOBBY TO WAIT FOR FAMILY
== END ==
LOC: COL.RAD 12:40
DX: R18.8 Other ascites (principal)

== ENCOUNTER → 2018-06-16 | Outpatient (CLI) | payer MEDICARE, BC ==
[~2018-06-16] VITALS: Ht 160 cm; Wt 64.3 kg
[2018-06-16 12:54] VITALS: BP 123/70; PULSE 90
[2018-06-16 15:15] VITALS: BP 120/65; PULSE 89
== END ==
LOC: COL.RAD 12:38
DX: R18.8 Other ascites (principal)

== ENCOUNTER 2018-06-28 17:03 | Inpatient (IN) | payer MEDICARE, BC ==
[~2018-06-28] VITALS: Ht 160 cm; Wt 58.6 kg
[2018-06-28 17:39] LABS: BASO % 0.4 % (0.0-2.0); EOS # 0.2 (0.0-0.7); EOS % 1.8 % (0-4.0); GRAN # 6.4 (1.4-6.5); GRAN % 77.9 % (42.2-75.2); HEMATOCRIT 27.1 % (37.0-47.0); HEMOGLOBIN 9.1 g/dl (12.5-16.0); LYMPH # 1.1 (1.2-3.4); LYMPH % 13.3 % (20.0-51.0); MEAN CELL VOLUME 98 fl (80.0-100.0); MEAN CORPUSCULAR HEMOGLOBIN 33 pg (27.0-31.0); MEAN CORPUSCULAR HGB CONC 34 g/dl (33.0-37.0); MEAN PLATELET VOLUME 11.1 fl (7.4-10.4); MONO # 0.5 (0.1-0.6); MONO % 6.2 % (1.7-9.3); PLATELET COUNT 122 K/mm3 (130-400); RED BLOOD COUNT 2.78 M/mm3 (4.10-5.30); REDCELL DISTRIBUTION WIDTH-CV 15.9 % (11.5-14.5)
[2018-06-28 17:54] LABS: ALBUMIN 3.1 gm/dL (3.5-5.0); BILIRUBIN,TOTAL 0.2 mg/dL (0.0-1.0); C-REACTIVE PROTEIN 2.6 mg/dL (0.0-0.9); CALCIUM 7.3 mg/dL (8.4-10.2); POTASSIUM 4.2 mmol/L (3.4-5.0); TOTAL PROTEIN 6.3 gm/dL (6.4-8.2)
[2018-06-28 18:06] LABS: CREATININE, serum 6.95 mg/dL (0.52-1.25); TROPONIN-I 0.062 ng/mL (0.000-0.035)
[2018-06-28 19:03] LABS: MAGNESIUM 1.1 mg/dL (1.6-2.3); PHOSPHOROUS 8.8 mg/dL (2.5-4.5)
[2018-06-28 19:44] LABS: COLLECTION METHOD CLEAN CATCH
[2018-06-28 19:52] LABS: BUDDING YEAST Present /hpf; MUCOUS Present /lpf; PH 5 (5-8); SQUAMOUS EPITHELIAL >50 /hpf; URINE APPEARANCE Turbid; URINE BACTERIA Rare /hpf; URINE BILIRUBIN Negative (NEGATIVE); URINE BLOOD 1+ (NEGATIVE); URINE COLOR Yellow; URINE GLUCOSE Negative (NEGATIVE); URINE KETONE Negative (NEGATIVE); URINE LEUKOCYTE ESTERASE 3+ (NEGATIVE); URINE NITRATE Negative (NEGATIVE); URINE PROTEIN(semi-quant) 1+ (NEGATIVE); URINE RBC 20-50 /hpf; URINE UROBILINOGEN Negative (NEGATIVE)
--- NOTE | 2018-06-28 22:00 | NUR ---
Completed admission with PT and family; Med rec and assessment completed; PT A&Ox4, BS active x4, ABD firm and round; paracentesis weekly on Tuesday(s); Scheduled for Tuesday07/03/18; PT reports chronic pain in BLE, BUE, and feet; PT has wet cough that is productive; bilateral diminshed bases on RA; LAC 20G INT; Bedros PT pending orders and med rec with physician; No further concerns at time of exit; PT assisted to comfortable position in bed with call light in reach; Will continue to monitor. CDA
[2018-06-29] VITALS (8 sets, daily range): BP systolic 111–136; BP diastolic 52–62; PULSE 79–103; TEMP 97.4–987
--- NOTE | 2018-06-29 07:37 | NUR ---
Report given to OK Gil; PT able to rest during night after arrival to floor; No further complaints or concerns at shift change; Ordered breakfast to assist PT. CDA
[2018-06-29 07:41] LABS: EOS # 0.1 (0.0-0.7); EOS % 2.7 % (0-4.0); GRAN # 3.1 (1.4-6.5); GRAN % 75.2 % (42.2-75.2); LYMPH # 0.6 (1.2-3.4); LYMPH % 13.8 % (20.0-51.0); MEAN CELL VOLUME 98 fl (80.0-100.0); MEAN CORPUSCULAR HGB CONC 32 g/dl (33.0-37.0); MEAN PLATELET VOLUME 11.3 fl (7.4-10.4); MONO # 0.3 (0.1-0.6); MONO % 7.6 % (1.7-9.3); PLATELET COUNT 93 K/mm3 (130-400); RED BLOOD COUNT 2.41 M/mm3 (4.10-5.30); REDCELL DISTRIBUTION WIDTH-CV 15.8 % (11.5-14.5)
[2018-06-29 07:43] LABS: HEMATOCRIT 23.7 % (37.0-47.0); HEMOGLOBIN 7.6 g/dl (12.5-16.0); MEAN CORPUSCULAR HEMOGLOBIN 32 pg (27.0-31.0)
[2018-06-29 07:49] LABS: CALCIUM 7.2 mg/dL (8.4-10.2); POTASSIUM 4.3 mmol/L (3.4-5.0)
[2018-06-29 07:53] LABS: CREATININE, serum 6.72 mg/dL (0.52-1.25)
--- NOTE | 2018-06-29 10:45 | NUR ---
Pt sitting in bed, denies any pain or shortness of breath. Morning assessment, hygeine and morning meds adminsitered by [facility] joy Marmolejo. Pts breathing is even and unlabored. Pt complains of pain on right pinkie toe, small blister noted, put barrier between toes to help with rubbing. Repositioned pt in bed, call light in reach.
--- NOTE | 2018-06-29 13:46 | NUR ---
Primary nurse was assisted with [id number] [facility] [employer] student Francie Pelayo and [employer] instructor Bobbi Mario RN-.
--- NOTE | 2018-06-29 13:55 | NUR ---
Patient relaxing in bed and requested shower. Assessment charted, VSS, states no further needs. Hygiene provided and linens changed. No further needs at thisi time. S Gita SN
[2018-06-29 15:32] LABS: COLLECTION METHOD CLEAN CATCH
[2018-06-29 15:43] LABS: BUDDING YEAST Present /hpf; MUCOUS Present /lpf; PH 5 (5-8); SQUAMOUS EPITHELIAL 20-50 /hpf; URINE APPEARANCE Cloudy; URINE BACTERIA Moderate /hpf; URINE BILIRUBIN Negative (NEGATIVE); URINE BLOOD 2+ (NEGATIVE); URINE COLOR Yellow; URINE GLUCOSE Negative (NEGATIVE); URINE KETONE Negative (NEGATIVE); URINE LEUKOCYTE ESTERASE 3+ (NEGATIVE); URINE NITRATE Negative (NEGATIVE); URINE PROTEIN(semi-quant) 1+ (NEGATIVE); URINE RBC 20-50 /hpf; URINE UROBILINOGEN Negative (NEGATIVE)
[2018-06-29 15:54] LABS: SODIUM 138 mmol/L (137-145)
--- NOTE | 2018-06-29 15:56 | NUR ---
ARIELLE met with the patient to discuss discharge plan. The patient lives in [place] with her daughter (Yesica) and son-in-law (Darwin). She reports independence with ADLs and has a cane, walker, and wheelchair. The patient's daughter reports that she also has home health services through [facility]. ARIELLE contacted Raine at [facility] and confirmed that the patient has services through them for longterm. The patient's PCP is Dr. Erlin Jane and she receives her medications at the [facility]. The patient reports no difficulties obtaining her meds. The patient does not have advanced directives in EMR, but the patient states that she does have them completed and that they are at home. The patient plans to return home with her daughter and resuming home health upon discharge. SW to continue to follow.
[2018-06-29 16:18] LABS: CREATININE, serum 6.74 mg/dL (0.52-1.25)
--- NOTE | 2018-06-29 18:26 | NUR ---
Pt up to the bathroom. Report given to Luz EUCEDA.
--- NOTE | 2018-06-29 20:32 | NUR ---
NEW ORDER: Received new TORB order from Dr. Bullard for Imodium or Loperamide 2mg PO PRN for loose stool. CDA
--- NOTE | 2018-06-29 23:42 | NUR ---
Completed medication administration and assessment; PT tolerated all cares and medications well; PT denies acute pain changes; Reporting unchanged chronic pain to bilateral feet; Acute loose stools reports; N/O received for Imodium 2mg; PT A&Ox3, BS active x4, LCTAB with diminished bases; PT continues to AMB with cane; No further assessed or verbalized needs at time of exit; PT able to return to comfortable position in bed with call light within reach; Family left to go home; Will continue to monitor. CDA
[2018-06-30] VITALS (11 sets, daily range): BP systolic 94–144; BP diastolic 41–68; PULSE 75–89; TEMP 97.5–98.7
--- NOTE | 2018-06-30 01:55 | NUR ---
PT resting well in bed during rounds; No further complaints of pain or acute concerns; PT appears to be in a comfortable position in bed with call light in reach; Will continue to monitor. CDA
[2018-06-30 06:05] LABS: BASO % 0.2 % (0.0-2.0); EOS # 0.2 (0.0-0.7); EOS % 3.5 % (0-4.0); GRAN # 3.3 (1.4-6.5); GRAN % 76.9 % (42.2-75.2); LYMPH # 0.5 (1.2-3.4); LYMPH % 11.1 % (20.0-51.0); MEAN CELL VOLUME 98 fl (80.0-100.0); MEAN CORPUSCULAR HGB CONC 33 g/dl (33.0-37.0); MEAN PLATELET VOLUME 10.8 fl (7.4-10.4); MONO # 0.3 (0.1-0.6); MONO % 7.8 % (1.7-9.3); PLATELET COUNT 79 K/mm3 (130-400); RED BLOOD COUNT 2.21 M/mm3 (4.10-5.30); REDCELL DISTRIBUTION WIDTH-CV 15.9 % (11.5-14.5)
[2018-06-30 06:06] LABS: HEMATOCRIT 21.7 % (37.0-47.0); HEMOGLOBIN 7.2 g/dl (12.5-16.0); MEAN CORPUSCULAR HEMOGLOBIN 33 pg (27.0-31.0)
[2018-06-30 06:14] LABS: CALCIUM 7.2 mg/dL (8.4-10.2); POTASSIUM 4.3 mmol/L (3.4-5.0)
[2018-06-30 06:26] LABS: CREATININE, serum 6.61 mg/dL (0.52-1.25)
--- NOTE | 2018-06-30 06:37 | NUR ---
Report given to OK Haque and OK Black; No significant changes throughout the night. CDA
--- NOTE | 2018-06-30 08:35 | NUR ---
Patient sleeping in bed. Assessment completed, SN Bruce
--- NOTE | 2018-06-30 09:18 | NUR ---
pt sitting in bed, [employer] student nurse suzy and instructor in room.
[2018-06-30 10:20] LABS: INR 1.1 (0.8-3.0); PROTHROMBIN TIME 12.3 SECONDS (9.7-12.8)
[2018-06-30 10:24] LABS: IRON,SERUM 30 ug/dL (35-150)
[2018-06-30 10:33] LABS: TOTAL IRON BINDING CAPACITY 202 ug/dL (265-497)
[2018-06-30 11:00] LABS: FERRITIN 198 ng/mL (11-264)
--- NOTE | 2018-06-30 11:00 | NUR ---
Pt off floor for paracentesis. Consent signed by pt.
--- NOTE | 2018-06-30 11:45 | NUR ---
Pt taken down for paracentesis so not able to administer ARanesp and Nulicit. Called pharmacy to check and see if Nulicit needs to be refridgerated while waiting for pt to get done with procedures. Tam Pharmacist advised to place in [facility] piggy back refridgerator. Nulicit place in fridge.
--- NOTE | 2018-06-30 13:48 | NUR ---
Primary nurse was assisted with [id number] patient care by [employer] [facility] Francie Pelayo and [employer] instructor Bobbi Mario RN-.
--- NOTE | 2018-06-30 14:04 | NUR ---
ALL MEDICATIONS GIVEN WITH VERBAL ORDER WITH MD. SEE MERGE FOR ALL MEDICATION ADMIN TIMES. SEE MERGE FOR ALL RASS ASSESSMENTS.
--- NOTE | 2018-06-30 14:45 | NUR ---
Received pt from laboratory sample carrier. Pt is awake and alert but drowsy. Dressing is clean dry and intact. Post op vitals started. Pt denies any needs at this time.
--- NOTE | 2018-06-30 18:15 | NUR ---
Pt sitting in bed, ordering dinner. Pt denies shortness of breath. Breathing even and unlabored. pt denies any pain. Call light in reach.
--- NOTE | 2018-06-30 22:08 | NUR ---
PT IN BED WITH HOB AT 45 DEGREE ANGLE. PT HAS COUGH THAT IS IRRITATING TO HER. PT DENIES PAIN. PT HAS NO FURTHER NEEDS CALL LIGHT WITHIN REACH.
[2018-07-01] VITALS (7 sets, daily range): BP systolic 95–126; BP diastolic 43–60; PULSE 72–100; TEMP 97.2–98.8
--- NOTE | 2018-07-01 01:08 | NUR ---
CALLED DR. COFFEY IN REFERENCE TO PT'S COUGH AND SHOULDER PAIN. RECEIVED ORDERS FROM DR. COFFEY FOR TESSALON PEARLS 100 MG EVERY 6 HOURS PRN FOR COUGH, TRAMADOL 50MG EVERY 6 HOURS PRN, AND TYLENOL 325MG EVERY 8 HOURS PRN FOR PAIN.
--- NOTE | 2018-07-01 06:02 | NUR ---
PT WAS ASLEEP AND EASILY AWAKENS. PT ADVISES THAT HER SHOULDER PAIN IS GONE AT THIS TIME. PT GOING TO TRY AND GO BACK TO SLEEP. DENIES PAIN AND DISCOMFORT, CALL LIGHT WITHIN REACH.
--- NOTE | 2018-07-01 07:15 | NUR ---
Report received from OK Ahmadi. Pt in bed resting at this time, will continue to monitor.
[2018-07-01 09:23] LABS: BASO % 0.2 % (0.0-2.0); EOS # 0.3 (0.0-0.7); EOS % 4.2 % (0-4.0); GRAN # 4.8 (1.4-6.5); GRAN % 80.8 % (42.2-75.2); LYMPH # 0.5 (1.2-3.4); LYMPH % 7.9 % (20.0-51.0); MEAN CELL VOLUME 98 fl (80.0-100.0); MEAN CORPUSCULAR HGB CONC 33 g/dl (33.0-37.0); MEAN PLATELET VOLUME 10.9 fl (7.4-10.4); MONO # 0.4 (0.1-0.6); MONO % 6.4 % (1.7-9.3); PLATELET COUNT 88 K/mm3 (130-400); RED BLOOD COUNT 2.43 M/mm3 (4.10-5.30); REDCELL DISTRIBUTION WIDTH-CV 15.7 % (11.5-14.5)
[2018-07-01 09:28] LABS: HEMATOCRIT 23.8 % (37.0-47.0); HEMOGLOBIN 7.8 g/dl (12.5-16.0); MEAN CORPUSCULAR HEMOGLOBIN 32 pg (27.0-31.0)
[2018-07-01 09:37] LABS: CALCIUM 7.2 mg/dL (8.4-10.2); POTASSIUM 4.5 mmol/L (3.4-5.0)
[2018-07-01 09:43] LABS: CREATININE, serum 6.41 mg/dL (0.52-1.25)
--- NOTE | 2018-07-01 10:45 | NUR ---
Pt resting at side of bed. Able to take am pills well with sips of water. R upper chest HD catheter covered with gauze and tegaderm. PT able to answer all orientation questions, awake and alert, family at bedside. Family and pt unaware of timeframe for dialysis today and plan of care post dialysis. Have not heard what the plan is for her but will call dialysis nurse for more details. Will continue to monitor.
--- NOTE | 2018-07-01 11:59 | NUR ---
Brought pt down to ICU room 17 for HD with dialysis nurse and Bedros, he requested family come down to talk to him, escorted family down to room. Pt anxious about first HD session, tried to reassure and guide her. Denies needs, will continue to monitor and await return.
--- NOTE | 2018-07-01 18:28 | NUR ---
Pt resting in bed after dialysis today. Has taken a few naps as needed after dialyssis but eating well. Family has been at bedside often today. Denies needs, will give bedside shift report to nightshift nurse who will resume care.
--- NOTE | 2018-07-01 19:30 | NUR ---
PT IN BED WITH HOB ELEVATED TO 30 DEGREE ANGLE. PT DENIES PAIN OR DISCOMFORT. PT'S ABDOMEN IS DISTENDED, NONTENDER, AND SOFT. NO NEEDS AT THIS TIME, CALL LIGHT WITHIN REACH.
--- NOTE | 2018-07-02 02:09 | NUR ---
PT HAD SLEPT SOME THIS NIGHT, BUT WOKE UP WITH PAIN IN SHOULDERS RATED AT A 5/10, GAVE TRAMADOL TO HELP WITH PAIN THAT PT CANNOT DISCRIBE. PT ALSO WAS ASSISTED TO THE BATHROOM. PT HAD BM ON HER THAT WAS CLEAN OFF OF HER. PT STATES THAT AFTER SHE EATS SHE HAD SOFT LOOSE STOOLS. PT HAD GOTTEN A NEW IV IN RIGHT FOREARM AT 2105 LAST NIGHT. IV 20G, RF, X1 ATTEMPT, WITH NO DIFFICULTIES. IV IN LEFT WRIST REMOVED, CATHETER INTACT, APPLIED PRESSURE TILL BLEEDING STOPPED, AND THEN APPLIED A PROTECTIVE DRSG. PT HAS CALL LIGHT WITHIN REACH.
[2018-07-02 04:05] VITALS: BP 124/57; PULSE 88; TEMP 98.2
--- NOTE | 2018-07-02 07:00 | NUR ---
Bedside shift report received from KO Ahmadi. Pt in bed resting, states she feels a little loopy, soft water mechanic strength is diminished, advised that she should take medications for pain with food from now on and educated on liver disease and kidney disease and metabolism of food. Will order breakfast and continue to monitor.
[2018-07-02 08:17] VITALS: BP 123/55; PULSE 86; TEMP 98.3
--- NOTE | 2018-07-02 09:21 | NUR ---
Assessment charted. PT in bed resting, falls asleep easily. able to eat small amount of breakfast, take am meds. Haven't heard about time for dialysis today. INT to RF. Denies pain. RUC HD catheter. Will continue to monitor.
[2018-07-02 12:07] VITALS: BP 124/62; PULSE 86; TEMP 97.6
[2018-07-02 14:21] LABS: BASO % 0.3 % (0.0-2.0); EOS # 0.2 (0.0-0.7); EOS % 3.2 % (0-4.0); GRAN # 5.2 (1.4-6.5); GRAN % 79.8 % (42.2-75.2); LYMPH # 0.6 (1.2-3.4); LYMPH % 9.5 % (20.0-51.0); MEAN CELL VOLUME 98 fl (80.0-100.0); MEAN CORPUSCULAR HGB CONC 33 g/dl (33.0-37.0); MEAN PLATELET VOLUME 11.5 fl (7.4-10.4); MONO # 0.4 (0.1-0.6); MONO % 6.6 % (1.7-9.3); PLATELET COUNT 96 K/mm3 (130-400); RED BLOOD COUNT 2.51 M/mm3 (4.10-5.30); REDCELL DISTRIBUTION WIDTH-CV 15.8 % (11.5-14.5)
[2018-07-02 14:24] LABS: HEMATOCRIT 24.7 % (37.0-47.0); HEMOGLOBIN 8.1 g/dl (12.5-16.0); MEAN CORPUSCULAR HEMOGLOBIN 32 pg (27.0-31.0)
[2018-07-02 14:33] LABS: CALCIUM 7.8 mg/dL (8.4-10.2); POTASSIUM 4.4 mmol/L (3.4-5.0)
[2018-07-02 14:35] LABS: CREATININE, serum 4.73 mg/dL (0.52-1.25)
[2018-07-02 15:47] LABS: HEPATITIS B CORE AB,TOTAL Negative (())
[2018-07-02 16:16] VITALS: BP 127/56; PULSE 85; TEMP 97.7
[2018-07-02 16:31] LABS: HEPATITIS B SURFACE ANTIBODY <2.0 (()); HEPATITIS B SURFACE ANTIGEN Negative (Negative)
[2018-07-02 16:33] LABS: HEPATITIS C VIRUS ANTIBODY Negative (Negative)
--- NOTE | 2018-07-02 17:52 | NUR ---
Pt has had good day. Up to shower this afternoon with staff, felt "much better" after showering. Taking PO well. Much more alert this afternoon than this morning, discussed taking ultram with food and recognizing that she will metabolize it much slower. Denies pain. Resting in bed with family at bedside. Will give bedside shift report to nightshift nurse who will resume care.
[2018-07-02 19:12] VITALS: BP 120/67; PULSE 90; TEMP 98.1
--- NOTE | 2018-07-02 20:10 | NUR ---
Assessment complete.patient awake,a/ox3.denies pain or discomfort at this time.breathing even and unlabored.dialysis catheter to RUC-appears red to surrounding.tegaderm dressing in place.INT to RFA.inguinal hernia noted.patient received all meds.denies any other needs at this time.call light in reach
[2018-07-02 23:36] VITALS: BP 122/53; PULSE 86; TEMP 98.1
[2018-07-03 04:48] VITALS: BP 127/62; PULSE 87; TEMP 98.1
[2018-07-03 07:56] LABS: BASO % 0.3 % (0.0-2.0); EOS # 0.3 (0.0-0.7); EOS % 4.3 % (0-4.0); GRAN % 77.2 % (42.2-75.2); LYMPH # 0.6 (1.2-3.4); LYMPH % 9.6 % (20.0-51.0); MEAN CELL VOLUME 98 fl (80.0-100.0); MEAN CORPUSCULAR HGB CONC 33 g/dl (33.0-37.0); MEAN PLATELET VOLUME 10.9 fl (7.4-10.4); MONO # 0.5 (0.1-0.6); MONO % 7.8 % (1.7-9.3); PLATELET COUNT 90 K/mm3 (130-400); POTASSIUM 5.1 mmol/L (3.4-5.0); RED BLOOD COUNT 2.46 M/mm3 (4.10-5.30); REDCELL DISTRIBUTION WIDTH-CV 15.7 % (11.5-14.5)
[2018-07-03 07:57] LABS: CREATININE, serum 5.17 mg/dL (0.52-1.25)
[2018-07-03 09:26] LABS: HEMATOCRIT 24.2 % (37.0-47.0); HEMOGLOBIN 7.9 g/dl (12.5-16.0); MEAN CORPUSCULAR HEMOGLOBIN 32 pg (27.0-31.0)
--- NOTE | 2018-07-03 11:06 | NUR ---
PT WENT DOWN TO DIALYSIS AND RETURNED ABOUT 1000, VIA W/C. PT DENIES PAIN OR DISCOMFORT AND IS AWARE METOPROLOL DC'D FOR NOW. NO NEEDS AT THIS TIME CALL LIGHT WITHIN REACH AND DAUGHTER IN THE ROOM WITH PT.
[2018-07-03 11:29] VITALS: BP 114/49; PULSE 102; TEMP 98
--- NOTE | 2018-07-03 14:22 | NUR ---
ARIELLE followed up with patient and daughter about discharge plan. Patient is planning to return home with her daughter and continue home health services. ARIELLE provided medicare.gov approved home health resource list. Patient would like to continue getting home health services through [facility]. ARIELLE will follow up with patient tomorrow morning.
[2018-07-03 15:43] VITALS: BP 106/45; PULSE 93; TEMP 98
[2018-07-03 16:05] VITALS: BP 112/43; PULSE 92; TEMP 98.3
--- NOTE | 2018-07-03 16:13 | NUR ---
CALLED DR. COFFEY PER FAMILY REQUEST WANTING TO KNOW WHEN THE PT WILL DISCHARGE. TALKED TO PT AND PT DOES NOT FEEL STRONG ENOUGH TO GO HOME TODAY. DR. COFFEY STATED THAT SHE WILL POSSIBLY DISCHARGE TOMORROW, WHEN HE MEETS WITH PT.
--- NOTE | 2018-07-03 18:26 | NUR ---
PT HAS BEEN RESTING IN BED WITH DAUGHTER BY SIDE. PT HAS GOTTEN UP A FEW TIMES TO THE BATHROOM. PT'S GAIT STEADY. PT DENIES PAIN OR DISCOMFORT. PT HAD EATEN HER SUPPER WELL. PT ATE ABOUT 80% OF WHOLE MEAL. PT HAS NO FURTHER NEEDS, CALL LIGHT WITHIN REACH.
[2018-07-03 20:50] VITALS: BP 127/51; PULSE 92; TEMP 98.4
[2018-07-04 00:15] VITALS: BP 123/53; PULSE 92; TEMP 98.7
--- NOTE | 2018-07-04 04:38 | NUR ---
PT HAD UNEVENTFUL NOC. NO C/O PAIN OR NOTED N/V/D. NO ISSUES OR CONSERNS VOICED THIS SHIFT.
[2018-07-04 05:40] VITALS: BP 136/61; PULSE 89; TEMP 98.4
[2018-07-04 07:53] LABS: BASO % 0.2 % (0.0-2.0); EOS # 0.1 (0.0-0.7); EOS % 1.9 % (0-4.0); GRAN # 5.2 (1.4-6.5); GRAN % 81.2 % (42.2-75.2); LYMPH # 0.5 (1.2-3.4); LYMPH % 8.1 % (20.0-51.0); MEAN CELL VOLUME 100 fl (80.0-100.0); MEAN CORPUSCULAR HGB CONC 33 g/dl (33.0-37.0); MEAN PLATELET VOLUME 10.4 fl (7.4-10.4); MONO # 0.5 (0.1-0.6); MONO % 8.1 % (1.7-9.3); PLATELET COUNT 85 K/mm3 (130-400); RED BLOOD COUNT 2.37 M/mm3 (4.10-5.30)
[2018-07-04 08:01] LABS: CALCIUM 8.3 mg/dL (8.4-10.2); POTASSIUM 4.7 mmol/L (3.4-5.0)
[2018-07-04 08:02] LABS: CREATININE, serum 4.35 mg/dL (0.52-1.25); HEMATOCRIT 23.6 % (37.0-47.0); HEMOGLOBIN 7.7 g/dl (12.5-16.0); MEAN CORPUSCULAR HEMOGLOBIN 32 pg (27.0-31.0)
[2018-07-04 08:17] VITALS: BP 120/59; PULSE 100
--- NOTE | 2018-07-04 08:40 | NUR ---
Assessment complete.patient awake,a/ox3.denies pain or discomfort at this time.LSCTA.breathing even and unlabored.VSS.dialysis catheter to [facility].pt denies any needs at this time.call light in reach
[2018-07-04] MEDS ORDERED: PHOSLO667 MG PO (09:46)
[2018-07-04] MEDS ORDERED: LASIX 40MG TABL40 MG PO (09:51)
[2018-07-04 11:11] VITALS: BP 136/68; PULSE 93; TEMP 97.8
--- NOTE | 2018-07-04 15:04 | NUR ---
patient discharge home at this time.all discharge instructions reveiewed.patient will be on fluid restrictions-This RN reinterated to patient when providing education.pt voiced understanding.patient denies any needs at this time.IV and Telemetry discontinued.This RN escorted patient out
== END 2018-07-04 15:08 | disposition home health service (06) | DRG 674 ==
LOC: COL.ER 17:03 → MEDICAL 19:03
PROVIDERS: Emergency Medicine; ADMIT Internal Medicine Nephrology
PROC: 0JHD0XZ Insertion of Tunneled Vascular Access Device into Right Upper Arm Subcutaneous Tissue and Fascia, Open Approach (ICD-10-PCS; principal; 2018-06-30)
PROC: 02H633Z Insertion of Infusion Device into Right Atrium, Percutaneous Approach (ICD-10-PCS; 2018-06-30)
PROC: 5A1D70Z Performance of Urinary Filtration, Intermittent, Less than 6 Hours Per Day (ICD-10-PCS; 2018-06-30)
PROC: 5A1D70Z Performance of Urinary Filtration, Intermittent, Less than 6 Hours Per Day (ICD-10-PCS; 2018-07-03)
DX: N17.9 Acute kidney failure, unspecified (principal); I12.0 Hypertensive chronic kidney disease with stage 5 chronic kidney disease or end stage renal disease; E87.2 Acidosis; R18.8 Other ascites; E44.0 Moderate protein-calorie malnutrition; N18.6 End stage renal disease; K74.60 Unspecified cirrhosis of liver; E78.5 Hyperlipidemia, unspecified; E11.22 Type 2 diabetes mellitus with diabetic chronic kidney disease; D63.1 Anemia in chronic kidney disease; N25.81 Secondary hyperparathyroidism of renal origin; D69.6 Thrombocytopenia, unspecified; E83.42 Hypomagnesemia; Z68.22 Body mass index [BMI] 22.0-22.9, adult
CPT/HCPCS: C1769; G0365; J0882; J1644; J2250; J2916; J3010; J7030

== ENCOUNTER 2018-07-26 07:56 | Day surgery (SDC) | payer MEDICARE, BC ==
[~2018-07-26] VITALS: Ht 160 cm; Wt 63.6 kg
[~2018-07-26 07:56] MED LIST changes: +PHOSLO667 MG PO
[2018-07-26 08:33] VITALS: BP 121/60; PULSE 87; TEMP 97.7
[2018-07-26 09:08] LABS: INR 1.1 (0.8-3.0); PROTHROMBIN TIME 12.5 SECONDS (9.7-12.8)
[2018-07-26 09:12] LABS: CALCIUM 8.6 mg/dL (8.4-10.2); CREATININE, serum 3.2 (0.52-1.25); POTASSIUM 4.6 mmol/L (3.4-5.0)
[2018-07-26] MEDS ORDERED: BIOTIN800 MCG PO (09:17)
[2018-07-26] MEDS ORDERED: VITAMIN D 1001000 IU PO (09:20)
[2018-07-26 10:55] VITALS: BP 118/52; PULSE 80
--- NOTE | 2018-07-26 10:55 | NUR ---
Patient returns to room 7 per cart from surgery accompanied by Elizabeth EUCEDA and arouses to verbal stimuli. IV fluids infusing right forearm. Siderails up x2 and call light in reach. Incision to the left antecubital area dry with brennan set in place and strong thrill noted. Temp 97.6 and room air sats 95%. Daughter in room.
[2018-07-26 11:10] VITALS: BP 114/55; PULSE 74
--- NOTE | 2018-07-26 11:10 | NUR ---
More awake and taking ice chips. Room air sats 96%.
[2018-07-26 11:25] VITALS: BP 115/44; PULSE 72
--- NOTE | 2018-07-26 11:25 | NUR ---
Taking ice chips. Thrill noted left AC. No drainage or swelling noted at the site.
[2018-07-26 11:40] VITALS: BP 116/46; PULSE 77
--- NOTE | 2018-07-26 11:40 | NUR ---
Eating applesauce. Denies pain or nausea.
--- NOTE | 2018-07-26 11:45 | NUR ---
IV discontinued and site is free of redness. Patient dresses self with minimal assist of daughter. Given dismissal instructions for home cares and caring for AV fistula. Daughter and patient both instructed and demonstrate proper technique for checking thrill. Both state that they are able to feel this.
--- NOTE | 2018-07-26 12:00 | NUR ---
Patient dismissed to home driven by daughter per private vehicle and taken to the front door per wheelchair and assisted into car with dismissal instructions in hand.
== END 2018-07-26 12:00 | disposition home or self-care (01) ==
LOC: SDCO 07:56
PROVIDERS: Surgery
DX: E11.22 Type 2 diabetes mellitus with diabetic chronic kidney disease (principal); I12.0 Hypertensive chronic kidney disease with stage 5 chronic kidney disease or end stage renal disease; N18.6 End stage renal disease; Z99.2 Dependence on renal dialysis; E11.21 Type 2 diabetes mellitus with diabetic nephropathy; Z96.653 Presence of artificial knee joint, bilateral; Z90.49 Acquired absence of other specified parts of digestive tract; Z90.710 Acquired absence of both cervix and uterus; Z87.19 Personal history of other diseases of the digestive system; E21.3 Hyperparathyroidism, unspecified; M10.9 Gout, unspecified; K58.9 Irritable bowel syndrome, unspecified; Z83.3 Family history of diabetes mellitus; Z79.899 Other long term (current) drug therapy; Z79.02 Long term (current) use of antithrombotics/antiplatelets; K72.90 Hepatic failure, unspecified without coma; K74.60 Unspecified cirrhosis of liver; I85.10 Secondary esophageal varices without bleeding; D64.9 Anemia, unspecified; E87.2 Acidosis
CPT/HCPCS: J0690; J1644; J2704; J7030

== ENCOUNTER → 2018-09-14 | Outpatient (CLI) | payer MEDICARE, BC ==
[~2018-09-14] VITALS: Ht 160 cm; Wt 59.0 kg
[~2018-09-14] MED LIST changes: +BIOTIN800 MCG PO
[2018-09-14 13:18] VITALS: BP 135/58; PULSE 85
[2018-09-14 15:15] VITALS: BP 123/53; PULSE 96
[2018-09-14 15:20] VITALS: BP 153/66; PULSE 90
[2018-09-14 15:30] VITALS: BP 148/68; PULSE 86
[2018-09-14 15:45] VITALS: BP 150/70; PULSE 86
== END ==
LOC: COL.RAD 13:04
DX: R18.8 Other ascites (principal)

== ENCOUNTER 2018-09-24 18:50 | Inpatient (IN) | payer MEDICARE, BC ==
[~2018-09-24] VITALS: Ht 160 cm; Wt 53.6 kg
[~2018-09-24 18:50] MED LIST changes: +VITAMIND3 5000 PO
[2018-09-24 19:24] LABS: BASO % 0.1 % (0.0-2.0); EOS % 0.5 % (0-4.0); GRAN # 6.2 (1.4-6.5); GRAN % 80.8 % (42.2-75.2); HEMATOCRIT 37.8 % (37.0-47.0); HEMOGLOBIN 12.2 g/dl (12.5-16.0); LYMPH # 0.7 (1.2-3.4); LYMPH % 9.1 % (20.0-51.0); MEAN CELL VOLUME 99 fl (80.0-100.0); MEAN CORPUSCULAR HEMOGLOBIN 32 pg (27.0-31.0); MEAN CORPUSCULAR HGB CONC 32 g/dl (33.0-37.0); MEAN PLATELET VOLUME 11.5 fl (7.4-10.4); MONO # 0.7 (0.1-0.6); MONO % 9.1 % (1.7-9.3); PLATELET COUNT 87 K/mm3 (130-400); RED BLOOD COUNT 3.83 M/mm3 (4.10-5.30); REDCELL DISTRIBUTION WIDTH-CV 13.7 % (11.5-14.5)
[2018-09-24 19:28] LABS: INR 1.1 (0.8-3.0); PROTHROMBIN TIME 12.7 SECONDS (9.7-12.8)
[2018-09-24 19:34] LABS: ALBUMIN 3.5 gm/dL (3.5-5.0); BILIRUBIN,TOTAL 0.9 mg/dL (0.0-1.0); CALCIUM 8.8 mg/dL (8.4-10.2); POTASSIUM 4.6 mmol/L (3.4-5.0); TOTAL PROTEIN 7.4 gm/dL (6.4-8.2)
[2018-09-24 19:58] LABS: TROPONIN-I 0.259 ng/mL (0.000-0.035)
[2018-09-24 20:02] LABS: CREATININE, serum 4.64 (0.52-1.25)
--- NOTE | 2018-09-24 20:52 | NUR ---
Report received from Eran EUCEDA in Emergency Department.
--- NOTE | 2018-09-24 21:05 | NUR ---
Pt arrives from Emergency Department via stretcher. Transfers to medical bed with 1 assist. No acute distress noted. Pt sits at side of bed. Family at bedside. Respirations even and unlabored. Fine crackles auscultated in bilateral upper lobes with lower lobes diminished. Abdomen is distended. BS hyperactive. Pt has right forearm IV site- flushes well. Pt also has r chest dialysis catheter with dressing. No redness or drainage noted at the site. Pt has a weak cough and ineffective airway clearance. Pt reports coughing up white pleghm, but this is not oberserved. VSS. Pt is 97% on O2@2via NC. Pt does not wear O2 at baseline. Pt has extensive brusing to bilateral upper extrmities, especially on the L arm where they accessed her for dialysis. Pt is alert and oriented. She reports increased weakness, but was steady during her amublation. Family is going home to get patients belongings and medication list. Pt denies pain at this time. Will continue to monitor.
[2018-09-24 21:13] VITALS: BP 137/50; PULSE 95; TEMP 99
[2018-09-25 00:30] VITALS: BP 136/58; PULSE 91; TEMP 99.4
--- NOTE | 2018-09-25 03:08 | NUR ---
Pt is resting with HOB elevated but easily awakens when nurse enters room. No distress noted. Pt reports that she "feels terrible" and she "can't relax". VS remain WNL. Spo2 97% on O2@2L via NC. No needs noted.
[2018-09-25 04:18] VITALS: BP 134/50; PULSE 91; TEMP 98.9
--- NOTE | 2018-09-25 05:35 | NUR ---
Pt resting with HOB elevated this AM. Pt did not sleep much since admission. She says she "just feels terrible". Pt is aware she is going to dialysis today. No acute distress noted.
[2018-09-25 07:18] LABS: CALCIUM 8.1 mg/dL (8.4-10.2); CREATININE, serum 4.81 (0.52-1.25); POTASSIUM 4.9 mmol/L (3.4-5.0)
[2018-09-25 07:21] LABS: BASO % 0.3 % (0.0-2.0); EOS % 0.1 % (0-4.0); GRAN # 6.2 (1.4-6.5); GRAN % 86.2 % (42.2-75.2); HEMOGLOBIN 10.4 g/dl (12.5-16.0); LYMPH # 0.4 (1.2-3.4); LYMPH % 5.1 % (20.0-51.0); MEAN CELL VOLUME 98 fl (80.0-100.0); MEAN CORPUSCULAR HEMOGLOBIN 31 pg (27.0-31.0); MEAN CORPUSCULAR HGB CONC 32 g/dl (33.0-37.0); MEAN PLATELET VOLUME 11.3 fl (7.4-10.4); MONO # 0.6 (0.1-0.6); MONO % 7.9 % (1.7-9.3); PLATELET COUNT 72 K/mm3 (130-400); RED BLOOD COUNT 3.34 M/mm3 (4.10-5.30); REDCELL DISTRIBUTION WIDTH-CV 13.5 % (11.5-14.5)
[2018-09-25 07:31] LABS: TROPONIN-I 0.255 ng/mL (0.000-0.035)
[2018-09-25 07:32] LABS: HEMATOCRIT 32.6 % (37.0-47.0)
--- NOTE | 2018-09-25 09:00 | NUR ---
Asssessment completed, alert/oriented, vital signs have been stable, denies pain, just feels "bad" and short of breath, stated she started coughing up some yellow mucus this morning, lungs are coarse, heart RRR/ distal pusles are palpable, she ate soem breakfast and I took her to diaylsis at this time by wheelchair
[2018-09-25 12:00] VITALS: BP 118/57; PULSE 111
--- NOTE | 2018-09-25 14:02 | NUR ---
Initial visit; Patient and family were responsive to Spiritual Care and thanked [employer] for keeping Kristin in her prayers. [employer] will follow up.
--- NOTE | 2018-09-25 14:50 | NUR ---
SW met with patient and daughter to discuss discharge planning. Patient lives at home with her daughter and plans to return there upon discharge. Patient's PCP is Dr Jane and she obtains prescriptions from [facility]. Patient does not report any DME. Patient does use [facility] for custodial once a week and OT three times a week. SW will fax updates to [facility]. Patient does have a DPOA. SW will continue to follow and assist with discharge needs.
[2018-09-25 15:45] VITALS: BP 141/49; PULSE 117; TEMP 98.9
--- NOTE | 2018-09-25 19:24 | NUR ---
Pt resting with HOB elevated. Family has just left for the evening. Pt reports feeling better tonight after receiving hemodialysis today. No acute distress noted. Repsirations even and unlabored. Lungs coarse with diminished bases. Pt has wet sounded cough that she reports was productive today, but is unsure of color of sputum. Sputum culture pending. Pts cough is very weak. Abdomen rounded with positive BS. Pt denies pain. R chest hemodialysis catheter with guaze dressing- no redness. Pt also has Larm AV fistula with positive bruit and thrill. Large amount of ecchymosist to that L arm. SCDs placed on for VTE prophylaxis. No futher needs noted.
--- NOTE | 2018-09-25 20:48 | NUR ---
Pt refusing medication tonight. She states she feels like it would get caught in her throat d/t phelgm. She report inability to clear the mucus. Spo2 is 94% on 2L currently. Pt has nutrional supplement at bedside that she reports is increasing the mucus. Will continue to monitor.
[2018-09-25 21:29] VITALS: BP 159/57; PULSE 102; TEMP 98.6
[2018-09-26] VITALS (12 sets, daily range): BP systolic 105–144; BP diastolic 44–69; PULSE 91–118; TEMP 98.1–98.6
--- NOTE | 2018-09-26 05:35 | NUR ---
Patient sleeping this AM. Pt easily arousable. Repositioned. Pt reports not feeling well. Pt has been NPO since midnight for Lexiscan today. No needs noted.
[2018-09-26 06:44] LABS: BASO % 0.2 % (0.0-2.0); EOS % 0.5 % (0-4.0); GRAN # 5.1 (1.4-6.5); GRAN % 84.5 % (42.2-75.2); HEMOGLOBIN 10.3 g/dl (12.5-16.0); LYMPH # 0.3 (1.2-3.4); LYMPH % 5.4 % (20.0-51.0); MEAN CELL VOLUME 99 fl (80.0-100.0); MEAN CORPUSCULAR HEMOGLOBIN 31 pg (27.0-31.0); MEAN CORPUSCULAR HGB CONC 31 g/dl (33.0-37.0); MEAN PLATELET VOLUME 11.4 fl (7.4-10.4); MONO # 0.6 (0.1-0.6); MONO % 9.1 % (1.7-9.3); PLATELET COUNT 71 K/mm3 (130-400); RED BLOOD COUNT 3.32 M/mm3 (4.10-5.30); REDCELL DISTRIBUTION WIDTH-CV 13.5 % (11.5-14.5)
[2018-09-26 06:50] LABS: CALCIUM 8.5 mg/dL (8.4-10.2); CREATININE, serum 3.27 (0.52-1.25); POTASSIUM 4.1 mmol/L (3.4-5.0)
[2018-09-27 03:48] VITALS: BP 135/48; PULSE 96; TEMP 98.2
--- NOTE | 2018-09-27 03:59 | NUR ---
PATIENT OBSERVED TO HAVE DIFFICULTY SWALLOWING WATER, APPLESAUCE, AND PILLS. REQUIRING AT LEAST 6 SWALLOWS TO COMPLETE SWALLOW. NO COUGHING WITH SWALLOWING. COUGH WEAK, REPORTS/OBSERVED DIFFICULTY CLEARING SPUTUM. T0 REQUEST SPEECH EVALUATION IN THE AM. AT HS PATIENT TEARFUL AND CRYING. STATES "I AM SO TIRED OF EVERYTHING. I DON'T WANT TO DO DIALYSIS ANYMORE". VOICES THAT SHE HAS LOST A SON, BOTH PARENTS, AND A SISTER IN THE LAST 10 YEARS AND IS STILL GREIVING FROM THESE LOSSES. REPORTS THAT SHE FEELS LIKE A BURDEN TO HER DAUGHTER AND SON IN LAW AND DOESN'T WANT TO EXPRESS THESE FEELINGS TO THEM. REPORTS THAT SHE IS YAZDANISM AND WOULD LIKE A VISIT FROM MEDICAL SAFETY DIRECTOR. TO SET THIS UP IN AM 09/27. AGREED TO PSYCHIATRIC CONSULT FOR EMOTIONAL SUPPORT. WILL PASS ON TO DAY NURSE 09/27. EMOTIONAL SUPPORT PROVIDED TO PATIENT. DISCUSSED MULTIPLE MEDICAL CONDITIONS AND GRIEVING. PRAYED WITH PATIENT PER HER APPROVAL. VOICED APPRECIATION FOR CARE PROVIDED. DURING VISIT PATIENT DENIED THOUGHTS OR FEELINGS OR HURTING HERSELF OR SELF HARM.
[2018-09-27 07:07] VITALS: BP 132/46; PULSE 104; TEMP 99
[2018-09-27 09:50] LABS: BASO % 0.1 % (0.0-2.0); EOS % 0.5 % (0-4.0); GRAN # 7.8 (1.4-6.5); GRAN % 87.7 % (42.2-75.2); HEMOGLOBIN 10.6 g/dl (12.5-16.0); LYMPH # 0.4 (1.2-3.4); LYMPH % 4.4 % (20.0-51.0); MEAN CELL VOLUME 98 fl (80.0-100.0); MEAN CORPUSCULAR HEMOGLOBIN 31 pg (27.0-31.0); MEAN CORPUSCULAR HGB CONC 32 g/dl (33.0-37.0); MEAN PLATELET VOLUME 11.2 fl (7.4-10.4); MONO # 0.6 (0.1-0.6); MONO % 6.7 % (1.7-9.3); PLATELET COUNT 94 K/mm3 (130-400); RED BLOOD COUNT 3.41 M/mm3 (4.10-5.30); REDCELL DISTRIBUTION WIDTH-CV 13.5 % (11.5-14.5)
[2018-09-27 09:53] LABS: HEMATOCRIT 33.4 % (37.0-47.0)
[2018-09-27 10:08] LABS: CALCIUM 8.9 mg/dL (8.4-10.2); CREATININE, serum 2.26 (0.52-1.25); POTASSIUM 3.8 mmol/L (3.4-5.0)
--- NOTE | 2018-09-27 12:40 | NUR ---
PT RETURNED FROM DIALYSIS AT THIS TIME. ORDERED LUNCH FOR PT AT THIS TIME. ADMINITERING PT SCHEDULED MEDS AT THIS TIME. PROCALAMINE STARTED AT THIS TIME. DIALYSIS REPORTED THAT 1.7KG WAS TAKEN OFF THIS AM. THIS NURSE ASKED PT IF SHE WAS WANTING ANY CLORASEPTIC SPRAY AT THIS TIME, PT DENIED NEED STATED SHE WAS TOO OUT OF BREATH AT THIS TIME FOR IT RIGHT NOW.
[2018-09-27 13:08] VITALS: BP 134/59; PULSE 84; TEMP 98.5
--- NOTE | 2018-09-27 14:47 | NUR ---
Follow-up visit; Patient's nurse requested visit from Dialysis Chief Equipment Technician who had tried visit earlier though patient was in dialysis. Nurse found patient coughing and not feeling well, so Dialysis Chief Equipment Technician suggested that she look in on patient when she was feeling more rested and wanting to visit. Kristin seemed comfortable with the suggestion.
[2018-09-27 16:05] VITALS: BP 125/43; PULSE 104; TEMP 98.9
--- NOTE | 2018-09-27 18:17 | NUR ---
PT AHD UNEVENTFUL DAY. FAMILY WAS IN TO VISIT PT. NO C/O PAIN THIS SHIFT. PT HAS REMAINED ON 1L OF O2 THIS SHIFT.
--- NOTE | 2018-09-27 20:47 | NUR ---
Resting in bed. Assessment complete. Right lower lobe crackles, otherwise clear. Heart sounds normal. Bowels active x4. Pulses strong throughout. No edema noted. Denies pain. Left upper arm and right forearm bruising present. Second IV started in right AC for antibiotic infusion. Right chest dialysis catheter present. Left upper arm fistula, bruit and thrill present. Denies needs at this time. Call light in reach.
[2018-09-27 21:19] VITALS: BP 122/44; PULSE 96; TEMP 98.5
[2018-09-28 00:16] VITALS: BP 142/64; PULSE 102; TEMP 98.8
--- NOTE | 2018-09-28 00:30 | NUR ---
Resting in bed. Denies needs. Call light in reach.
[2018-09-28 04:32] VITALS: BP 139/54; PULSE 96; TEMP 98.3
--- NOTE | 2018-09-28 04:32 | NUR ---
Patient reports sore throat. Refuses to take PRN medication and refused anything cold to drink/eat. States "I guess it is a part of getting old." Educated patient that sore throat is not a part of "getting old" and staff can provide medication for pain relief. Patient refused. Also reports "I just cant breathe very well when I cough." Denies need for breathing treatment. Repositioned to proper position to breathe correctly. Patient reports relief in symptoms. Denies other needs at this time. Will monitor.
--- NOTE | 2018-09-28 05:40 | NUR ---
Patient reported x1 episode of diffculty breathing that resolved with repositioning. Also reported sore throat, refused any PRN medication to aide in discomfort. Otherwise uneventful night. Resting in bed this AM. Call light in reach.
--- NOTE | 2018-09-28 06:37 | NUR ---
Report given to OK Martino
[2018-09-28 07:18] VITALS: BP 133/54; PULSE 83; TEMP 97.8
[2018-09-28 07:27] LABS: BASO % 0.3 % (0.0-2.0); EOS % 0.4 % (0-4.0); GRAN # 6.8 (1.4-6.5); GRAN % 86.6 % (42.2-75.2); LYMPH # 0.5 (1.2-3.4); LYMPH % 6.1 % (20.0-51.0); MEAN CELL VOLUME 99 fl (80.0-100.0); MEAN CORPUSCULAR HGB CONC 32 g/dl (33.0-37.0); MEAN PLATELET VOLUME 11.7 fl (7.4-10.4); MONO # 0.5 (0.1-0.6); PLATELET COUNT 88 K/mm3 (130-400); RED BLOOD COUNT 3.14 M/mm3 (4.10-5.30); REDCELL DISTRIBUTION WIDTH-CV 13.5 % (11.5-14.5)
[2018-09-28 07:33] LABS: HEMOGLOBIN 9.9 g/dl (12.5-16.0); MEAN CORPUSCULAR HEMOGLOBIN 32 pg (27.0-31.0)
[2018-09-28 07:41] LABS: CALCIUM 8.6 mg/dL (8.4-10.2); CREATININE, serum 3.18 (0.52-1.25); MAGNESIUM 2.3 mg/dL (1.6-2.3); PHOSPHOROUS 3.8 mg/dL (2.5-4.5); POTASSIUM 4.4 mmol/L (3.4-5.0)
[2018-09-28 11:56] VITALS: BP 110/60; PULSE 90; TEMP 98.3
--- NOTE | 2018-09-28 13:52 | NUR ---
Follow-up visit; Patient thanked [employer] for looking in on her and offering spiritual care.
[2018-09-28 16:23] VITALS: BP 107/66; PULSE 83; TEMP 98.4
--- NOTE | 2018-09-28 18:05 | NUR ---
PT HAD C/O COUGH THAT SHE WASNT ABLE TO GET OUT AND CAUSING HER A SORE THROAT AND NEEDED A BREATHING TREATMENT AND VESTA ECOUGH DROPS THIS NURSE INFOMRED RT ABOUT BREATHING TX AND ASKED PT IF SHE WANTED TO TRY THE CHOLORSEPTINE SPRAY THAT IS ON ORDER. PT STATED THAT SHE WOULD TRY THE SPRAY. THIS NURSE ADMINSTERED SPRAY, PT STATED THAT IT SEEEMS TO BE NUMBING HER SORE THROAT AND PT HAD AUDIBLE COUGH SHORTLY AFTER. PT FAMILY IN TO SEE PT AT THIS TIME.
--- NOTE | 2018-09-28 18:57 | NUR ---
PT HAD UNEVENTFUL DAY. PROCALAMINE INFUSING WITHOUT ISSUE.
[2018-09-28 19:02] VITALS: BP 132/58; PULSE 96; TEMP 97.8
--- NOTE | 2018-09-28 22:14 | NUR ---
Resting in bed. Assessment complete. Left upper lobe diminished. Right lung crackles. Heart sounds normal. Bowels active x4. Pulses present throughout. Right forearm infiltration from IV. Removed at this time. Denies pain in arm. Bilateral arm bruising present. Right chest dialysis access without complications. Left upper arm fistula present with bruit and thrill. INT right AC leaking and IV right forearm infiltrated. X1 attempt to start new IV, unsuccessful. Contacted house supervisior for new IV. Denies pain at this time. Call light in reach. Will monitor.
[2018-09-29 00:28] VITALS: BP 139/53; PULSE 89; TEMP 98.3
--- NOTE | 2018-09-29 00:46 | NUR ---
Resting in bed. IV in right hand without complications at this time. Denies needs. Call light in reach.
[2018-09-29 04:07] VITALS: BP 128/49; PULSE 93; TEMP 98.2
--- NOTE | 2018-09-29 04:07 | NUR ---
Resting in bed. Denies needs. Call light in reach.
--- NOTE | 2018-09-29 04:30 | NUR ---
Up to restroom and returned to bed. Denies needs at this time. Call light in reach.
--- NOTE | 2018-09-29 06:10 | NUR ---
Patient resting in bed this AM. Had uneventful night. Denies needs. Call light in reach.
--- NOTE | 2018-09-29 06:51 | NUR ---
Report given to OK Sheehan
[2018-09-29 07:08] LABS: BASO % 0.1 % (0.0-2.0); EOS # 0.1 (0.0-0.7); EOS % 0.8 % (0-4.0); GRAN % 85.2 % (42.2-75.2); LYMPH # 0.5 (1.2-3.4); LYMPH % 7.2 % (20.0-51.0); MEAN CELL VOLUME 99 fl (80.0-100.0); MEAN CORPUSCULAR HGB CONC 32 g/dl (33.0-37.0); MEAN PLATELET VOLUME 11.7 fl (7.4-10.4); MONO # 0.4 (0.1-0.6); MONO % 6.1 % (1.7-9.3); PLATELET COUNT 90 K/mm3 (130-400); RED BLOOD COUNT 3.13 M/mm3 (4.10-5.30); REDCELL DISTRIBUTION WIDTH-CV 13.4 % (11.5-14.5)
[2018-09-29 07:15] LABS: HEMATOCRIT 30.9 % (37.0-47.0); HEMOGLOBIN 9.8 g/dl (12.5-16.0); MEAN CORPUSCULAR HEMOGLOBIN 31 pg (27.0-31.0)
[2018-09-29 07:21] LABS: CALCIUM 8.7 mg/dL (8.4-10.2); CREATININE, serum 4.34 (0.52-1.25); MAGNESIUM 2.4 mg/dL (1.6-2.3); PHOSPHOROUS 4.1 mg/dL (2.5-4.5); POTASSIUM 5.3 mmol/L (3.4-5.0)
--- NOTE | 2018-09-29 08:28 | NUR ---
Patient down for dialysis, escorted via wheelchair. Morning meds not administered yet, patient also received breathing treatment prior to dialysis. Per RT, satting 96% on 1LNC.
--- NOTE | 2018-09-29 13:30 | NUR ---
Patient assessment complete and charted. Patient back from dialysis, assessment and medications administered per MAR. Patient A&O. Patient denies pain, chest pain, N/V, dizziness. C/O SOB when getting up and moving around. Rt chest catheter site is CDI, new dressing from Christina in dialysis. Rt hand IV CDI, no infiltration noted, PPN running with no complications. Patient has bilateral upper extremity brusing. Lt arm deep bruising covering most of arm. Rt arm scattered bruising. Feet dry and flaking. Patient on 1-2L NC, satting at 96-97%. Patient has cough but unable to produce phlegm. Rt sd lungs diminished. patient tolerating food and liquids well. Lt arm fistula not in use. NO other needs and call light within reach.
--- NOTE | 2018-09-29 13:45 | NUR ---
ARIELLE spoke with Mariangel, Dr Bullard nurse, about discharge timeline on patient. Mariangel reports patient will likely be here through the weekend. ARIELLE requested PT and OT eval.
--- NOTE | 2018-09-29 14:38 | NUR ---
SARAH FROM RT REMOVED 02, PATIENT SATTING "96-97% ON 1L NC". PATIENT GETS SOB WHEN GETTING UP. 02 IN ROOM IF SHE GETS SOB.
--- NOTE | 2018-09-29 15:10 | NUR ---
THIS NURSE IN PATIENT ROOM ADMINISTERING VANC. PATIENT FEELING SOB, REACHING FOR O2. PUT O2 BACK ON PATIENT. CURRENTLY ON 2L NC, SATTING AT 96%. DR. LAM IN TO VISIT WITH PATIENT.
[2018-09-29 17:33] VITALS: BP 118/45; PULSE 89; TEMP 98.3
--- NOTE | 2018-09-29 17:45 | NUR ---
New PPN and lipids started in RH IV, no complications. Per dietitian, run concurrently. PPN at 50ml/hr, lipids at 21ml/hr.
--- NOTE | 2018-09-29 20:12 | NUR ---
Report given to OK Escobar. patient in room with family at bedside. RVP panel collected. TB test pending. This nurse contacted Dr. Thorpe to clarify quantiferin test was to rule out TB. Patient to be placed on precautions. This nurse contacted Laya Phelps to discuss patient being on precautions and room 359 being out of order. Patient in process of being moved to another room on surgical. NO other needs.
[2018-09-30 00:58] VITALS: BP 140/48; PULSE 86; TEMP 98.6
[2018-09-30 03:12] LABS: PROCALCITONIN 2.39 ng/mL (0.00-0.09)
[2018-09-30 03:41] VITALS: BP 126/52; PULSE 90; TEMP 97.6
--- NOTE | 2018-09-30 07:00 | NUR ---
Patient slept most the night. She has been slightly confused during the night. She keeps forgetting why she is here. Her main complaint is of having a cough. No other changes at this time. Call light within reach. Bed alarm on.
--- NOTE | 2018-09-30 07:00 | NUR ---
HouseSupervisor Marimar called to provide PAPR PPE d/t Airborne precautions
--- NOTE | 2018-09-30 08:00 | NUR ---
Pt AAOx3, out of bed to chair, no complaints from pt, Airborne precautions in place, call light in reach, pt resting comfortably in recliner watching television Card Hand on unit, recommending PPN be discontinued d/t pt eating better
[2018-09-30 09:00] VITALS: BP 127/59; PULSE 85; TEMP 97.4
[2018-09-30 09:01] LABS: MAGNESIUM 2.5 mg/dL (1.6-2.3); PHOSPHOROUS 3.8 mg/dL (2.5-4.5)
--- NOTE | 2018-09-30 09:30 | NUR ---
Meds unable to be scanned d/t computer malfunction - meds administered 5 pt Rights confirmed with OK Baca
[2018-09-30 13:29] VITALS: BP 141/54; PULSE 89; TEMP 98
[2018-09-30 17:00] VITALS: BP 144/49; PULSE 91; TEMP 99.3
[2018-09-30 21:00] VITALS: BP 144/56; PULSE 100; TEMP 98.9
[2018-10-01] VITALS: BP 133/53; PULSE 89; TEMP 99.1
[2018-10-01 03:30] VITALS: BP 142/60; PULSE 72; TEMP 98.2
--- NOTE | 2018-10-01 06:00 | NUR ---
Patient slept most the night. No complaints of pain. Denies nausea. She got up to the bedside commode twice during the night. She transfers well with assist. She had two soft/loose dark brown stools in the night. No other changes at this itme. Call light within reach.
[2018-10-01 07:52] VITALS: BP 135/51; PULSE 88; TEMP 98.3
[2018-10-01 08:32] LABS: MAGNESIUM 2.6 mg/dL (1.6-2.3); PHOSPHOROUS 4.1 mg/dL (2.5-4.5)
--- NOTE | 2018-10-01 10:00 | NUR ---
Patient alert and oriented, answers questions appropriately. See assessment. Lungs diminished in bases, clear in upper lobes. +Cough. No s/s accessory muscle use. No sputum with cough. No c/o SOA. No other c/o at this time.
[2018-10-01 11:20] LABS: BASO % 0.2 % (0.0-2.0); EOS % 0.2 % (0-4.0); GRAN # 7.9 (1.4-6.5); GRAN % 90.7 % (42.2-75.2); LYMPH # 0.4 (1.2-3.4); LYMPH % 4.3 % (20.0-51.0); MEAN CELL VOLUME 96 fl (80.0-100.0); MEAN CORPUSCULAR HGB CONC 32 g/dl (33.0-37.0); MEAN PLATELET VOLUME 10.5 fl (7.4-10.4); MONO # 0.3 (0.1-0.6); MONO % 3.6 % (1.7-9.3); PLATELET COUNT 102 K/mm3 (130-400); RED BLOOD COUNT 3.18 M/mm3 (4.10-5.30); REDCELL DISTRIBUTION WIDTH-CV 13.4 % (11.5-14.5)
[2018-10-01 11:23] LABS: HEMATOCRIT 30.6 % (37.0-47.0); HEMOGLOBIN 9.8 g/dl (12.5-16.0); MEAN CORPUSCULAR HEMOGLOBIN 31 pg (27.0-31.0)
[2018-10-01 11:30] LABS: CALCIUM 9.2 mg/dL (8.4-10.2); CREATININE, serum 1.87 (0.52-1.25); POTASSIUM 4.1 mmol/L (3.4-5.0)
[2018-10-01 17:08] VITALS: BP 139/50; PULSE 104; TEMP 98.3
[2018-10-01 20:05] VITALS: BP 112/42; PULSE 96; TEMP 98.6
[2018-10-02 00:57] VITALS: BP 125/46; PULSE 87; TEMP 98
[2018-10-02 04:10] VITALS: BP 126/52; PULSE 81; TEMP 98.6
--- NOTE | 2018-10-02 06:30 | NUR ---
Patient slept most the night. No complaints of pain during the night. She was very worn out from dialysis. Offered to help order breakfast this morning, she wanted to wait. She did not have any bowel movements during the night. No other changes at this time. Call light within reach.
[2018-10-02 07:10] VITALS: BP 151/60; PULSE 93; TEMP 97.7
[2018-10-02 07:11] LABS: CALCIUM 9.1 mg/dL (8.4-10.2); CREATININE, serum 3.31 (0.52-1.25); MAGNESIUM 2.5 mg/dL (1.6-2.3); PHOSPHOROUS 3.8 mg/dL (2.5-4.5); POTASSIUM 4.7 mmol/L (3.4-5.0)
--- NOTE | 2018-10-02 11:20 | NUR ---
Patient alert and oriented, answers questions appropraitely. See assessment. Lungs clear in upper lobes, decreased in bases. No c/o SOA. No use of accessory muscles noted. No c/o at this time.
[2018-10-02 11:39] VITALS: BP 138/47; PULSE 91; TEMP 97.5
[2018-10-02 14:19] LABS: QUANTIFERON TB GOLD Indeterminate (Negative)
[2018-10-02 15:33] VITALS: BP 132/49; PULSE 95; TEMP 98.3
--- NOTE | 2018-10-02 21:00 | NUR ---
HS meds reviewed and given in lauren alvarez. Patient drowsy but oriented. Denies pain. Declines heels being floated. INT RH kinked/occluded. INT restarted 22gauge RFA. Has smear of bm and cleaned/repositioned. SCD's on. IV levaquin infused without problems. Family reports patient has dry ankles/feet and lotion applied. Tips of toes slight reddened/nail beds thick.
--- NOTE | 2018-10-02 23:00 | NUR ---
Patient initially resting with eyes closed and awakened for med/given in applesauce.
[2018-10-02 23:36] VITALS: BP 118/41; PULSE 90; TEMP 98.1
[2018-10-03] VITALS (11 sets, daily range): BP systolic 112–129; BP diastolic 37–89; PULSE 67–100; TEMP 97.6–98.7
--- NOTE | 2018-10-03 02:05 | NUR ---
Patient resting quietly in bed. RT into see.
--- NOTE | 2018-10-03 04:30 | NUR ---
Patient up to BSC min assist and voids small amount tea colored urine and has small bm. Rests self back in bed. Denies pain. New gown applied and pullup.
--- NOTE | 2018-10-03 10:30 | NUR ---
Patient is going off floor for bronchoscopy with lavage. Her family has been notified. Patient signed her consent and is on chart. Dr Padgett called them and went over the procedure with patient. NS hanging to straight tubing at 30ml per anesthesia. No other changes at this time.
--- NOTE | 2018-10-03 11:30 | NUR ---
Patient is back from her bronch. She is coughing a lot but is not producing anything. She stated her throat is sore but i ok. Denies nausea. Family is at bedside. No other changes at this time. Call light within reach.
--- NOTE | 2018-10-03 13:40 | NUR ---
Patient has gone down to dialysis. No other changes at this time. Chart with patient.
[2018-10-03 15:10] LABS: CREATININE, serum 2.95 (0.52-1.25); POTASSIUM 4.3 mmol/L (3.4-5.0)
--- NOTE | 2018-10-03 18:00 | NUR ---
Patient is back in the room from dialysis. Her family is here but they will be leaving sone. Denies nausea and pain. Food is ordered. No other changes at this time. Call light within reach.
--- NOTE | 2018-10-03 20:20 | NUR ---
Patient report received from OK Madison at shift change. Upon assessment at this time patient is resting comfortably in bed, denies pain or n/v. Ate about 1/3 of her meal. INT to right FA. Patient is in airborne precautions, PPE worn. Ice water refilled. No other needs reported.
[2018-10-04 05:50] VITALS: BP 117/49; PULSE 81; TEMP 98.3
[2018-10-04 06:39] LABS: BASO % 0.3 % (0.0-2.0); EOS % 0.5 % (0-4.0); GRAN # 6.6 (1.4-6.5); GRAN % 88.5 % (42.2-75.2); HEMOGLOBIN 10.1 g/dl (12.5-16.0); LYMPH # 0.4 (1.2-3.4); LYMPH % 5.1 % (20.0-51.0); MEAN CELL VOLUME 99 fl (80.0-100.0); MEAN CORPUSCULAR HEMOGLOBIN 31 pg (27.0-31.0); MEAN CORPUSCULAR HGB CONC 32 g/dl (33.0-37.0); MEAN PLATELET VOLUME 12.1 fl (7.4-10.4); MONO # 0.4 (0.1-0.6); MONO % 4.7 % (1.7-9.3); PLATELET COUNT 97 K/mm3 (130-400); RED BLOOD COUNT 3.25 M/mm3 (4.10-5.30); REDCELL DISTRIBUTION WIDTH-CV 13.8 % (11.5-14.5)
[2018-10-04 06:47] LABS: ALBUMIN 3.5 gm/dL (3.5-5.0); BILIRUBIN,TOTAL 0.4 mg/dL (0.0-1.0); CREATININE, serum 2.94 (0.52-1.25); MAGNESIUM 2.3 mg/dL (1.6-2.3); PHOSPHOROUS 3.7 mg/dL (2.5-4.5); POTASSIUM 4.6 mmol/L (3.4-5.0); TOTAL PROTEIN 6.5 gm/dL (6.4-8.2)
[2018-10-04 06:54] LABS: PRE ALBUMIN 21.9 mg/dL (17.6-36.0)
[2018-10-04 07:02] LABS: HEMATOCRIT 32.1 % (37.0-47.0)
[2018-10-04 09:16] VITALS: BP 113/43; PULSE 93; TEMP 97.7
--- NOTE | 2018-10-04 10:35 | NUR ---
Assessment completed, alert/oriented, vital signs stable, denies pain, reports feeling about the same/ No better and no worse, no resp.difficulty noted at rest, lungs coarse and diminished, AFB /cx's pending, Pulmonoly came by and said if acid fast test is negative we can removed airbore isolation p/c, heart RRR, distal pulses are palapble, she is eating breakfast and denies other needs at this time, abx infusing, will continue to minitor
[2018-10-04 12:58] VITALS: BP 114/41; PULSE 92; TEMP 98.2
--- NOTE | 2018-10-04 15:23 | NUR ---
ARIELLE met with the patient and spoke to the patient's daughter, Yesica, via speaker phone to review discharge plan. The patient and patient's daughter report that the plan is for the patient to return back home with the daughter and son-in-law. They state they plan to resume home health services through [facility]. The patient's daughter reports that she is interested in some private duty services. SW to provide the patient with a list of agencies that provide private duty services and will continue to follow.
[2018-10-04 17:00] VITALS: BP 122/52; PULSE 90; TEMP 98.2
--- NOTE | 2018-10-04 21:30 | NUR ---
Awakened for HS med/reviewed and given in applesauce. Heels reddened and floated on pillow. Rests on right side. Denies pain or needs. Declines snack.
[2018-10-04 21:35] VITALS: BP 116/36; PULSE 93; TEMP 98.5
[2018-10-04 23:03] VITALS: BP 111/41; PULSE 86; TEMP 98.2
--- NOTE | 2018-10-05 00:34 | NUR ---
Awakened for meds and reviewed and given.
--- NOTE | 2018-10-05 01:00 | NUR ---
Patient repositioned up in bed. Heels floated on pillow and covers adjusted.
[2018-10-05 05:27] VITALS: BP 121/44; PULSE 84; TEMP 98
--- NOTE | 2018-10-05 06:20 | NUR ---
Patient was up once to BS during the night with assist. Has denied pain. Med reviewed and given in applesauce.
[2018-10-05 07:33] VITALS: BP 131/48; PULSE 87; TEMP 98.1
--- NOTE | 2018-10-05 09:07 | NUR ---
Assessment completed, alert/oriented, vital signs stable, stated she is feeling better this morning and rested well, denies pain, Blood Cx + for Gram positive cocci/ AFB results still pending and still in airborne isolation at this time, she is not coughing at this time and this has improved significantly per her report, right lungs roach still coarse, basees diminished, heart RRR, she is sitting up in bed eating breakfast and denies other needs at this time, plan s for dialysis today
--- NOTE | 2018-10-05 09:49 | NUR ---
SW provided the patient with a list of agencies that provide private duty services. SW to continue to follow.
[2018-10-05 12:20] LABS: MEAN CELL VOLUME 98 fl (80.0-100.0); MEAN CORPUSCULAR HEMOGLOBIN 32 pg (27.0-31.0); MEAN CORPUSCULAR HGB CONC 32 g/dl (33.0-37.0); MEAN PLATELET VOLUME 11.5 fl (7.4-10.4); PLATELET COUNT 101 K/mm3 (130-400); RED BLOOD COUNT 3.17 M/mm3 (4.10-5.30)
[2018-10-05 12:30] LABS: CREATININE, serum 1.68 (0.52-1.25)
[2018-10-05 13:12] LABS: BAND 6 % (0-10); LYMPHOCYTE 3 % (20.0-51.0); NEUTROPHILS 91 % (42.0-75.2); PLATELET ESTIMATE NORMAL (NORMAL)
[2018-10-05 17:38] VITALS: BP 125/43; PULSE 71; TEMP 98.1
[2018-10-05 19:15] VITALS: BP 118/46; PULSE 86; TEMP 98.2
--- NOTE | 2018-10-05 20:30 | NUR ---
Shift assessment complete. Patient ambulated to BSC with assist x1. Denies pain. HDU cath in right chest, dressing CDI (gauze/tegaderm). Left fistula strong bruit/thrill, entire arm bruised. Coccyx noted to have stage 1 pressure ulcer, does not jesica. Pull-up left off, barrier cream applied. Pillow placed under right side to alleviate pressure. Patient states she is more comfortable. Denies further needs at this time. Will continue to monitor.
[2018-10-05 23:23] VITALS: BP 106/42; PULSE 80; TEMP 97.9
[2018-10-06 05:45] VITALS: BP 112/38; PULSE 80; TEMP 98.1
--- NOTE | 2018-10-06 06:39 | NUR ---
Patient in bed, awake. Denies pain. Denies needs at this time.
[2018-10-06 07:40] VITALS: BP 114/38; PULSE 79; TEMP 97.9
--- NOTE | 2018-10-06 08:00 | NUR ---
PATIENT IS A&O. VERY THIN, WEAK PATIENT WITH MANY HAVEN PROMINENCES. APPLIED PRESSURE DRESSING TO STAGE 1 COCCYX. HEELS FLOATED. NOTED MANY BRUISES TO BUE. PATIENT ON PLAVIX. NOTED SOME DYSPNEA ON EXERTION. A&P LUNG CARCAMO ARE DEMINISHED WITH SOME FINE CRACKLES NOTED IN BASES. PATIENT IS ON AIRBORN PRECAUTIONS TO R/O TB. CURRENT DNR. RIGHT SUBC DIALYSIS CATH TO INT. PATIENT HAS DIALYSIS T, TH & SAT. LEFT FORARM FISTULA WITH GOOD BRUIT & THRILL HOWEVER IS VERY DARK PURPLE BRUISING ALL AROUND FISTULA SITE. AM BS OF 125. RENAL DIET. PILLS GIVEN WITH APPLESAUCE. HEAD TO TOE ASSESSMENT COMPLETE. SCD'S TO BLE. NO OTHER NEEDS. CALL LIGHT IN REACH.
[2018-10-06 08:04] LABS: CREATININE, serum 3.21 (0.52-1.25); MAGNESIUM 2.3 mg/dL (1.6-2.3); PHOSPHOROUS 3.6 mg/dL (2.5-4.5); POTASSIUM 4.6 mmol/L (3.4-5.0)
[2018-10-06 12:06] VITALS: BP 126/51; PULSE 86; TEMP 98.7
--- NOTE | 2018-10-06 14:59 | NUR ---
Reviewed lab information with Dr. Padgett: YESENIA preliminary TRUANT (AFB) Stain reporting no acid fast bacilli found and [facility] report of gram stain performed by Dr. Choudhary reporting special stain for mycobacterial organisms negative. Both tests performed on specimens obtained during October 03, 2018 bronchoscopy. Airborne isolation precautions removed.
[2018-10-06 15:25] VITALS: BP 131/46; PULSE 84; TEMP 98.3
--- NOTE | 2018-10-06 19:38 | NUR ---
Pt sitting with HOB elevated. No distress noted. Family just left for the night. Patient is requesting to move rooms tonight since she is no longer on isolation. Will move patient once room is cleaned. Patient denies pain. Respirations even and unlabored. Lungs diminished throughout with fine crackles in bilateral bases. BS+. Abdomen soft, nontender with hernia present. Stage I pressure ulcer to coccyx- mepiplex clean, dry and intact. Air mattress on bed. Patient turning. Pt requests SCDs be removed at this time. No other needs noted. Will continue to monitor
[2018-10-06 21:16] VITALS: BP 116/44; PULSE 85; TEMP 98.4
--- NOTE | 2018-10-06 22:00 | NUR ---
Pt moved to new room per request. Belongs moved with patient. Call light in reach. Bed low and locked. No needs.
[2018-10-06 22:59] VITALS: BP 111/42; PULSE 83; TEMP 99.2
[2018-10-07 03:03] VITALS: BP 117/41; PULSE 84; TEMP 97.9
--- NOTE | 2018-10-07 05:30 | NUR ---
Pt sleeping this AM. No distress noted. Pt is easily arousable. Denies pain. Pt reports she had a good night and denies needs at this time.
--- NOTE | 2018-10-07 07:24 | NUR ---
REPORT RECEIVED FROM OK ESPINOZA. PT SLEEPING SOUNDLY IN BED. CALL LIGHT IN REACH.
[2018-10-07 08:20] VITALS: BP 116/46; PULSE 68; TEMP 97.9
--- NOTE | 2018-10-07 09:29 | NUR ---
Pt just finished breakfast and resting comfortably. Pt denie pain and noted dialysis schedule this AM. Pt's getting IV antibiotics at this time. Call light in reach.
--- NOTE | 2018-10-07 10:15 | NUR ---
PT WENT DOWN TO DIALYSIS AT THIS TIME.
[2018-10-07 11:10] LABS: BASO % 0.1 % (0.0-2.0); EOS # 0.1 (0.0-0.7); HEMATOCRIT 28.7 % (37.0-47.0); HEMOGLOBIN 9.2 g/dl (12.5-16.0); LYMPH # 0.3 (1.2-3.4); MEAN CELL VOLUME 98 fl (80.0-100.0); MEAN CORPUSCULAR HEMOGLOBIN 31 pg (27.0-31.0); MEAN CORPUSCULAR HGB CONC 32 g/dl (33.0-37.0); MEAN PLATELET VOLUME 11.4 fl (7.4-10.4); MONO # 0.4 (0.1-0.6); MONO % 5.3 % (1.7-9.3); PLATELET COUNT 96 K/mm3 (130-400); RED BLOOD COUNT 2.94 M/mm3 (4.10-5.30); REDCELL DISTRIBUTION WIDTH-CV 14.6 % (11.5-14.5)
[2018-10-07 11:18] LABS: CALCIUM 8.7 mg/dL (8.4-10.2); CREATININE, serum 2.7 (0.52-1.25); POTASSIUM 4.1 mmol/L (3.4-5.0)
--- NOTE | 2018-10-07 12:12 | NUR ---
PT STILL DOWN IN DIALYSIS AT THIS TIME.
--- NOTE | 2018-10-07 13:03 | NUR ---
REPORT GIVEN TO OK CUEVAS. PT'S STILL IN DIALYSIS AT THIS TIME.
--- NOTE | 2018-10-07 15:15 | NUR ---
Patient up from dialysis by wheelchair. Alert and oriented x 3. Assessment complete. Ordered lunch. Denies further needs at this time.
[2018-10-07 17:06] VITALS: BP 127/46; PULSE 83; TEMP 98.6
--- NOTE | 2018-10-07 18:55 | NUR ---
Patient in bed resting. Has been up to restroom with 1 assist throughout the afternoon, with walker, steady gait. Takes medications whole in apple sauce. Denies pain at this time. denies further needs at this time.
--- NOTE | 2018-10-07 20:00 | NUR ---
Report received. Assumed care for shift. Assessment complete. VS stable. Denies pain. Portacath to right subclavian flushes without difficulty. INT to right AC-flushes without difficulty. Denies needs at this time. Family at bedside. Call light within reach. Bed in low position. Will monitor.
[2018-10-07 20:20] VITALS: BP 110/40; PULSE 85; TEMP 98.4
[2018-10-07 23:52] VITALS: BP 127/45; PULSE 80; TEMP 99.1
[2018-10-08 05:31] VITALS: BP 117/74; PULSE 79; TEMP 98
--- NOTE | 2018-10-08 08:00 | NUR ---
Patient resting in bed at this time. Patient rouses easily and is alert and oriented, answers questions appropriately. while awake. Patient denies pain or needs at this time, states that she has ordered breakfast.
[2018-10-08 08:08] VITALS: BP 112/43; PULSE 87; TEMP 98
[2018-10-08 11:33] VITALS: BP 114/42; PULSE 88; TEMP 98.2
[2018-10-08 15:30] VITALS: BP 117/40; PULSE 94; TEMP 97.7
--- NOTE | 2018-10-08 18:52 | NUR ---
Patient has rested intermittently during the day. Continues to deny pain or needs, call light within reach.
[2018-10-08 20:04] VITALS: BP 112/49; PULSE 92; TEMP 98.1
[2018-10-08 23:55] VITALS: BP 114/42; PULSE 87; TEMP 98.1
--- NOTE | 2018-10-09 00:30 | NUR ---
IV placed in right wrist 22g, one attempt. Tolerated well. Right AC 20g infiltrated at end of last IV antibiotic dose. Redness/swelling. DCd-cath intact.
--- NOTE | 2018-10-09 04:32 | NUR ---
Has slept off and on this shift. Denies pain. Has had no N/V. Denies cough or shortness of breathe. Call light in reach. Will monitor.
[2018-10-09 05:15] VITALS: BP 115/42; PULSE 85; TEMP 98.2
[2018-10-09 07:28] LABS: CALCIUM 8.9 mg/dL (8.4-10.2); MAGNESIUM 2.4 mg/dL (1.6-2.3); PHOSPHOROUS 4.2 mg/dL (2.5-4.5); POTASSIUM 4.6 mmol/L (3.4-5.0)
[2018-10-09 07:37] LABS: CREATININE, serum 4.82 (0.52-1.25)
[2018-10-09 07:47] VITALS: BP 129/44; PULSE 91; TEMP 98.3
--- NOTE | 2018-10-09 14:00 | NUR ---
Dr. Bullard would like for the patient to have assisted stay before going home. SW contacted the pt's daughter to explain the patient choice form. The pt's daughter's first choice was [facility], second choice [facility], and third choice [facility]. [facility] accepted the patient for a skilled stay and SW informed the pt, the pt's nurse and the pt's daughter. ARIELLE will continue to follow.
[2018-10-09] MEDS ORDERED: LEXAPRO 10MG10 MG PO (14:27)
[2018-10-09] MEDS ORDERED: LASIX 40MG TABL40 MG PO (14:29)
[2018-10-09] MEDS ORDERED: REGLAN 5MG T5 MG/TAB PO (14:30)
[2018-10-09] MEDS ORDERED: PREDNISONE 5MG5 MG PO (14:33)
[2018-10-09] MEDS ORDERED: CLEOCIN HC150 MG/CAP PO (14:35)
--- NOTE | 2018-10-09 14:49 | NUR ---
The patient is to discharge today, 10/09 to [facility] at 1530 for a skilled stay. ARIELLE informed the pt, the pt's nurse and the pt's daughter and all were in agreeance. ARIELLE presented the IM form to the patient. The pt understood and signed the form. The original was placed in the chart and a copy provided to the patient. There are no addtional needs at this time.
[2018-10-09 15:07] VITALS: BP 129/44; PULSE 91; TEMP 98.3
--- NOTE | 2018-10-09 15:45 | NUR ---
Patient transferred to [facility] with transporation staff at 1545. Paperwork sent. Report called.
== END 2018-10-09 15:45 | DRG 166 ==
LOC: COL.ER 18:50 → MEDICAL 20:38 → SURG 20:38 → MEDICAL 23:00 → SURG 09-29 20:21
PROVIDERS: Emergency Medicine; Internal Medicine Critical Care Medicine; Internal Medicine Nephrology; Internal Medicine Pulmonary Disease; ADMIT Internal Medicine
PROC: 5A1D70Z Performance of Urinary Filtration, Intermittent, Less than 6 Hours Per Day (ICD-10-PCS; 2018-09-25)
PROC: 0B9M8ZX Drainage of Bilateral Lungs, Via Natural or Artificial Opening Endoscopic, Diagnostic (ICD-10-PCS; principal; 2018-10-03 10:30)
DX: J18.1 Lobar pneumonia, unspecified organism (principal); N18.6 End stage renal disease; I21.A1 Myocardial infarction type 2; I12.0 Hypertensive chronic kidney disease with stage 5 chronic kidney disease or end stage renal disease; E87.2 Acidosis; R18.8 Other ascites; E44.0 Moderate protein-calorie malnutrition; E11.22 Type 2 diabetes mellitus with diabetic chronic kidney disease; Z66 Do not resuscitate; D63.1 Anemia in chronic kidney disease; Z68.20 Body mass index [BMI] 20.0-20.9, adult; E11.43 Type 2 diabetes mellitus with diabetic autonomic (poly)neuropathy; E11.65 Type 2 diabetes mellitus with hyperglycemia; I25.10 Atherosclerotic heart disease of native coronary artery without angina pectoris; K31.84 Gastroparesis; K72.90 Hepatic failure, unspecified without coma; F43.9 Reaction to severe stress, unspecified; F32.9 Major depressive disorder, single episode, unspecified; E78.5 Hyperlipidemia, unspecified; K43.9 Ventral hernia without obstruction or gangrene; D69.6 Thrombocytopenia, unspecified; Z88.0 Allergy status to penicillin; R19.7 Diarrhea, unspecified; Z79.02 Long term (current) use of antithrombotics/antiplatelets; Z99.2 Dependence on renal dialysis; Z96.653 Presence of artificial knee joint, bilateral; Z96.698 Presence of other orthopedic joint implants; Z90.710 Acquired absence of both cervix and uterus
CPT/HCPCS: 99232-AI; A4216; A9500; J0330; J0692; J0882; J1644; J1815; J1956; J2250; J2704; J2785; J3370; J7030; J7050; J7512; P9047

== ENCOUNTER → 2018-10-31 | Outpatient (CLI) | payer MEDICARE, BC ==
[~2018-10-31] VITALS: Ht 160 cm; Wt 56.3 kg
[~2018-10-31] MED LIST changes: +CLEOCIN HC150 MG/CAP PO; +LEXAPRO 10MG10 MG PO; +PREDNISONE 5MG5 MG PO; +REGLAN 5MG T5 MG/TAB PO
[2018-10-31 14:44] VITALS: BP 117/63; PULSE 79
[2018-10-31 15:20] VITALS: BP 109/54; PULSE 69
== END ==
LOC: COL.RAD 14:21
DX: N18.6 End stage renal disease (principal)

== ENCOUNTER → 2018-11-30 | Outpatient (CLI) | payer MEDICARE, BC ==
[~2018-11-30] VITALS: Ht 160 cm; Wt 56.3 kg
[~2018-11-30] MED LIST changes: +TYLENOL 500MG500 MG PO
[2018-11-30 13:08] VITALS: BP 99/53; PULSE 70
[2018-11-30 14:30] VITALS: BP 96/47; PULSE 81
--- NOTE | 2018-11-30 15:30 | NUR ---
Pt down to waiting room for arrival of daughter. Denies complaints at this time.
== END ==
LOC: COL.RAD 11-27 13:30
DX: K74.60 Unspecified cirrhosis of liver (principal)

== ENCOUNTER → 2019-01-09 | Outpatient (CLI) | payer MEDICARE, BC ==
[~2019-01-09] VITALS: Ht 160 cm; Wt 60.5 kg
[2019-01-09 12:45] VITALS: BP 123/63; PULSE 71
[2019-01-09 14:00] VITALS: BP 117/56; PULSE 77
--- NOTE | 2019-01-09 14:30 | NUR ---
Pt out to car per wheelchair. Pt up and into car with minimal assistance.
== END ==
LOC: COL.RAD 12:30
DX: R18.8 Other ascites (principal)

== ENCOUNTER → 2019-01-18 | Outpatient (CLI) | payer MEDICARE, BC | LOC: COL.VAS 10:30 | DX: I70.202 Unspecified atherosclerosis of native arteries of extremities, left leg (principal) ==

== ENCOUNTER → 2019-03-01 | Outpatient (CLI) | payer MEDICARE, BC ==
[~2019-03-01] VITALS: Ht 160 cm; Wt 60.7 kg
[2019-03-01 13:14] VITALS: BP 119/59; PULSE 68
[2019-03-01 14:20] VITALS: BP 136/66; PULSE 74
== END ==
LOC: COL.RAD 12:52
DX: K74.60 Unspecified cirrhosis of liver (principal)

== ENCOUNTER → 2019-04-24 | Outpatient (CLI) | payer MEDICARE, BC ==
[~2019-04-24] VITALS: Ht 160 cm; Wt 63.4 kg
[2019-04-24 12:49] VITALS: BP 118/54; PULSE 82
[2019-04-24 14:26] VITALS: BP 143/65; PULSE 83
--- NOTE | 2019-04-24 15:00 | NUR ---
PT TAKEN TO FRONT LOBBY IN THE WHEELCHAIR TO WAIT FOR HER FAMILY
== END ==
LOC: COL.RAD 12:35
DX: K74.60 Unspecified cirrhosis of liver (principal)

== ENCOUNTER → 2019-05-23 | Outpatient (CLI) | payer MEDICARE, BC | LOC: COL.LAB 16:23 | DX: R05 Cough (principal); M79.10 Myalgia, unspecified site; Z20.828 Contact with and (suspected) exposure to other viral communicable diseases ==

== ENCOUNTER → 2019-05-29 | Outpatient (CLI) | payer MEDICARE, BC ==
[~2019-05-29] VITALS: Ht 160 cm; Wt 63.9 kg
[2019-05-29 12:26] VITALS: BP 123/64; PULSE 74
[2019-05-29 14:02] VITALS: BP 134/57; PULSE 70
== END ==
LOC: COL.RAD 11:45
DX: R18.8 Other ascites (principal); K74.60 Unspecified cirrhosis of liver
CPT/HCPCS: 19804

== ENCOUNTER → 2019-08-14 | Outpatient (CLI) | payer MEDICARE, BC ==
[~2019-08-14] VITALS: Ht 160 cm; Wt 66.8 kg
[2019-08-14 14:00] VITALS: BP 138/60; PULSE 76
--- NOTE | 2019-08-14 14:13 | NUR ---
PT TAKEN DOWN TO FRONT LOBBY TO [facility]
== END ==
LOC: COL.RAD 12:36
DX: R18.8 Other ascites (principal)

== ENCOUNTER → 2019-10-02 | Outpatient (CLI) | payer MEDICARE, BC ==
[~2019-10-02] VITALS: Ht 160 cm; Wt 67.5 kg
[2019-10-02 09:17] VITALS: BP 136/63; PULSE 76
[2019-10-02 10:31] VITALS: BP 136/58; PULSE 83
--- NOTE | 2019-10-02 10:52 | NUR ---
pt leaves in wheelchair to lobby to await family. no bleeding or difficulties
== END ==
LOC: COL.RAD 08:58
DX: R18.8 Other ascites (principal)

== ENCOUNTER → 2019-11-22 | Outpatient (CLI) | payer MEDICARE, BC ==
[~2019-11-22] VITALS: Ht 160 cm; Wt 67.6 kg
[~2019-11-22] MED LIST changes: +REGLAN 10MG10 MG/TAB PO
[2019-11-22 12:16] VITALS: BP 111/56; PULSE 81
[2019-11-22 13:50] VITALS: BP 109/48; PULSE 86
== END ==
LOC: COL.RAD 11:58
DX: K70.31 Alcoholic cirrhosis of liver with ascites (principal)

== ENCOUNTER → 2019-12-13 | Outpatient (CLI) | payer MEDICARE, BC ==
[~2019-12-13] VITALS: Ht 160 cm; Wt 67.8 kg
[2019-12-13 07:52] VITALS: BP 111/58; PULSE 80
[2019-12-13 09:55] VITALS: BP 143/64; PULSE 84
== END ==
LOC: COL.RAD
DX: R18.8 Other ascites (principal)

== ENCOUNTER → 2020-01-22 | Outpatient (CLI) | payer MEDICARE, BC ==
[~2020-01-22] VITALS: Ht 160 cm; Wt 67.2 kg
[2020-01-22 12:01] VITALS: BP 122/60; PULSE 86
[2020-01-22 14:00] VITALS: BP 135/60; PULSE 97
== END ==
LOC: COL.RAD 11:41
DX: K74.60 Unspecified cirrhosis of liver (principal); B19.10 Unspecified viral hepatitis B without hepatic coma

== ENCOUNTER → 2020-02-05 | Outpatient (CLI) | payer MEDICARE, BC ==
[~2020-02-05] VITALS: Ht 160 cm; Wt 66.7 kg
[2020-02-05 13:00] VITALS: BP 126/82; PULSE 81
[2020-02-05 14:26] VITALS: BP 146/68; PULSE 82
--- NOTE | 2020-02-05 14:27 | NUR ---
DR MURRELL REMOVED 6450 CC OF CLEAR YELLOW FLUID
== END ==
LOC: COL.RAD 12:35
DX: R18.8 Other ascites (principal)

== ENCOUNTER 2020-02-14 09:18 | Outpatient (CLI) | payer MEDICARE, BC ==
[2020-02-14] VITALS (9 sets, daily range): BP systolic 113–144; BP diastolic 52–60; PULSE 70–80; TEMP 72–97.5
[2020-02-14] MEDS ORDERED: BIOTIN800 MCG PO (11:49)
[2020-02-14] MEDS ORDERED: OMEGA-3 FISH1000 MG PO (11:49)
[2020-02-14] MEDS ORDERED: VITAMIN D 400400 IU PO (11:50)
[2020-02-14] MEDS ORDERED: PROBIOTIC FORMU1 CAP PO (11:51)
--- NOTE | 2020-02-14 12:57 | NUR ---
SEE MERGE DOCUMENTATION FOR MEDICATION ADMINISTRATION TIMES AND INTRA/POST PROCEDURE SEDATION ASSESSMENTS.
--- NOTE | 2020-02-14 16:45 | NUR ---
Pt returned to express unit at 1425 after AV fistulogram. pt is awake, alert, no distress, punctures to lewis fistual covered with bandaids, no bleeding or hematoma. no pain reported. pt updated on 2 hr monitoring period before departure. daughter at bs.
--- NOTE | 2020-02-14 16:45 | NUR ---
[facility], cath intact, dressing applied. I have reviewed dc instructions with patient who denies any questions. pt to exit via wheelchair.
== END 2020-02-14 17:28 | disposition home or self-care (01) ==
LOC: COL.RAD 09:18
DX: Z12.9 Encounter for screening for malignant neoplasm, site unspecified (principal); K46.9 Unspecified abdominal hernia without obstruction or gangrene; K74.60 Unspecified cirrhosis of liver; K76.6 Portal hypertension; K31.89 Other diseases of stomach and duodenum
CPT/HCPCS: J1644; Q9967

== ENCOUNTER → 2020-02-19 | Outpatient (CLI) | payer MEDICARE, BC ==
[~2020-02-19] MED LIST changes: +VITAMIN D 400400 IU PO
[2020-02-19 13:49] VITALS: BP 122/57; PULSE 83
== END ==
LOC: COL.RAD 12:00
DX: R18.8 Other ascites (principal)

== ENCOUNTER → 2020-03-05 | Outpatient (CLI) | payer MEDICARE, BC ==
[~2020-03-05] VITALS: Ht 160 cm; Wt 67.5 kg
[2020-03-05 09:04] VITALS: BP 118/57; PULSE 74
[2020-03-05 10:39] VITALS: BP 137/63; PULSE 80
== END ==
LOC: COL.RAD 03-04 12:00
DX: K74.60 Unspecified cirrhosis of liver (principal)
CPT/HCPCS: 19804

== ENCOUNTER → 2020-04-17 | Outpatient (CLI) | payer MEDICARE, BC | LOC: COL.RAD 12:10 | DX: K74.60 Unspecified cirrhosis of liver (principal); Z90.49 Acquired absence of other specified parts of digestive tract ==

== ENCOUNTER → 2020-04-18 | Outpatient (CLI) | payer MEDICARE, BC ==
[~2020-04-18] VITALS: Ht 160 cm; Wt 79.5 kg
[2020-04-18 09:11] VITALS: BP 125/62; PULSE 78
[2020-04-18 10:54] VITALS: BP 141/64; PULSE 78
== END ==
LOC: COL.RAD 08:41
DX: K74.60 Unspecified cirrhosis of liver (principal)

== ENCOUNTER → 2020-05-06 | Outpatient (CLI) | payer MEDICARE, BC ==
[~2020-05-06] VITALS: Ht 160 cm; Wt 69.1 kg
[~2020-05-06] MED LIST changes: +ANTI-DIARRHEAL2 MG PO; +PEPPERMINT OIL PO
[2020-05-06 13:10] VITALS: BP 121/60; PULSE 83
== END ==
LOC: COL.RAD 11:41
DX: K74.60 Unspecified cirrhosis of liver (principal)

== ENCOUNTER 2020-05-20 08:00 | Day surgery (SDC) | payer MEDICARE, BC ==
[~2020-05-20] VITALS: Ht 160 cm; Wt 69.4 kg
[~2020-05-20 08:00] MED LIST changes: -ANTI-DIARRHEAL2 MG PO; -PEPPERMINT OIL PO
[2020-05-20 08:39] VITALS: BP 137/59; PULSE 80; TEMP 97.7
[2020-05-20] MEDS ORDERED: PEPPERMINT OIL PO (08:56)
[2020-05-20] MEDS ORDERED: ANTI-DIARRHEAL2 MG PO (08:57)
[2020-05-20 10:05] VITALS: BP 120/47; PULSE 72
--- NOTE | 2020-05-20 10:05 | NUR ---
Patient returns to bay 4 per cart and is awake and alert. Dr. Medrano in the room and talks with patient and daughter. All questions answered. Temp 97.8 and room air sats 96%. Transferred from cart to recliner with two person assist. Given sips of water to drink.
[2020-05-20 10:20] VITALS: BP 118/50; PULSE 69
--- NOTE | 2020-05-20 10:20 | NUR ---
Tolerates sips of water. Drowsy but arouses easily to verbal stimuli. Daughter in room.
[2020-05-20 10:35] VITALS: BP 122/49; PULSE 71
--- NOTE | 2020-05-20 10:35 | NUR ---
Tolerated water. Offered snack and states that she prefers to eat at home. Daughter states that she will provide her lunch at home. IV discontinued and site is free of redness.
--- NOTE | 2020-05-20 10:40 | NUR ---
Dismissal instructions given and voices understanding of these by patient and daughter. Assisted with dressing and into wheelchair.
--- NOTE | 2020-05-20 10:53 | NUR ---
Patient taken to the front door per wheelchair accompanied by daughter. Ride has not arrived yet. René states that she will assist patient to vehicle when ride here. Patient is resting in wheelchair and dismissal instructions in hand.
== END 2020-05-20 10:53 | disposition home or self-care (01) ==
LOC: SDCO 08:00
DX: I85.00 Esophageal varices without bleeding (principal); K76.6 Portal hypertension; K31.89 Other diseases of stomach and duodenum; E11.22 Type 2 diabetes mellitus with diabetic chronic kidney disease; N18.6 End stage renal disease; Z90.49 Acquired absence of other specified parts of digestive tract; Z90.710 Acquired absence of both cervix and uterus; Z79.01 Long term (current) use of anticoagulants; Z88.0 Allergy status to penicillin; Z88.1 Allergy status to other antibiotic agents; Z88.8 Allergy status to other drugs, medicaments and biological substances; Z96.653 Presence of artificial knee joint, bilateral; K72.90 Hepatic failure, unspecified without coma; M10.9 Gout, unspecified; D64.9 Anemia, unspecified; E87.2 Acidosis
CPT/HCPCS: J2704; J7030

== ENCOUNTER → 2020-05-22 | Outpatient (CLI) | payer MEDICARE, BC ==
[~2020-05-22] VITALS: Ht 160 cm; Wt 67.0 kg
[~2020-05-22] MED LIST changes: +ANTI-DIARRHEAL2 MG PO; +PEPPERMINT OIL PO
[2020-05-22 09:18] VITALS: BP 143/67; PULSE 66
[2020-05-22 10:51] VITALS: BP 140/69; PULSE 92
== END ==
LOC: COL.RAD 05-20 11:45
DX: K74.60 Unspecified cirrhosis of liver (principal)
CPT/HCPCS: J2704

== ENCOUNTER → 2020-06-12 | Outpatient (CLI) | payer MEDICARE, BC ==
[~2020-06-12] VITALS: Ht 160 cm; Wt 66.0 kg
[~2020-06-12] MED LIST changes: +PEPPERMINT OIL 11 ML; +PROBIOTIC-MAJOR PO; +THERA-D 20002000 IU PO
[2020-06-12 09:20] VITALS: BP 121/70; PULSE 62
[2020-06-12 10:43] VITALS: BP 126/64; PULSE 87
== END ==
LOC: COL.RAD 08:56
DX: R18.8 Other ascites (principal)
CPT/HCPCS: 19804

== ENCOUNTER → 2020-06-26 | Outpatient (CLI) | payer MEDICARE, BC ==
[~2020-06-26] VITALS: Ht 160 cm; Wt 67.0 kg
[2020-06-26 12:13] VITALS: BP 1123/57; PULSE 74
[2020-06-26 14:10] VITALS: BP 138/64; PULSE 85
== END ==
LOC: COL.RAD 11:49
DX: R18.8 Other ascites (principal)
CPT/HCPCS: 19804

== ENCOUNTER → 2020-07-10 | Outpatient (CLI) | payer MEDICARE, BC ==
[~2020-07-10] VITALS: Ht 160 cm; Wt 65.8 kg
[2020-07-10 12:15] VITALS: BP 106/52; PULSE 79
[2020-07-10 13:20] VITALS: BP 139/65; PULSE 88
== END ==
LOC: COL.RAD 11:58
DX: R18.8 Other ascites (principal)
CPT/HCPCS: 19804

== ENCOUNTER → 2020-07-24 | Outpatient (CLI) | payer MEDICARE, BC ==
[~2020-07-24] VITALS: Ht 160 cm; Wt 65.5 kg
[2020-07-24 12:09] VITALS: BP 115/60; PULSE 80
[2020-07-24 13:40] VITALS: BP 119/56; PULSE 84
== END ==
LOC: COL.RAD 11:40
DX: R18.8 Other ascites (principal)
CPT/HCPCS: 19804

== ENCOUNTER → 2020-08-12 | Outpatient (CLI) | payer MEDICARE, BC ==
[~2020-08-12] VITALS: Ht 160 cm; Wt 64.5 kg
[2020-08-12 11:52] VITALS: BP 119/51; PULSE 52
[2020-08-12 13:25] VITALS: BP 125/63; PULSE 86
== END ==
LOC: COL.RAD 11:32
DX: R18.8 Other ascites (principal)
CPT/HCPCS: 19804

== ENCOUNTER → 2020-08-26 | Outpatient (CLI) | payer MEDICARE, BC ==
[~2020-08-26] VITALS: Ht 160 cm; Wt 65.8 kg
[2020-08-26 12:07] VITALS: BP 115/54; PULSE 82
[2020-08-26 13:20] VITALS: BP 104/51; PULSE 80
== END ==
LOC: COL.RAD 11:44
DX: R18.8 Other ascites (principal)
CPT/HCPCS: 19804

== ENCOUNTER → 2020-09-16 | Outpatient (CLI) | payer MEDICARE, BC ==
[~2020-09-16] VITALS: Ht 160 cm; Wt 67.7 kg
[2020-09-16 12:23] VITALS: BP 124/57; PULSE 72
[2020-09-16 13:34] VITALS: BP 140/68; PULSE 78
== END ==
LOC: COL.RAD 11:45
DX: R18.8 Other ascites (principal)
CPT/HCPCS: 19804

== ENCOUNTER → 2020-09-30 | Outpatient (CLI) | payer MEDICARE, BC ==
[~2020-09-30] VITALS: Ht 160 cm; Wt 65.3 kg
[2020-09-30 09:19] VITALS: BP 114/55; PULSE 76
[2020-09-30 10:25] VITALS: BP 115/45; PULSE 86
== END ==
LOC: COL.RAD 09:00
DX: R18.8 Other ascites (principal)
CPT/HCPCS: 19804

== ENCOUNTER → 2020-10-14 | Outpatient (CLI) | payer MEDICARE, BC ==
[~2020-10-14] VITALS: Ht 160 cm; Wt 64.0 kg
[2020-10-14 13:36] VITALS: BP 107/72; PULSE 79
[2020-10-14 15:30] VITALS: BP 128/57; PULSE 86
== END ==
LOC: COL.RAD 12:59
DX: R18.8 Other ascites (principal)
CPT/HCPCS: 19804

== ENCOUNTER → 2020-10-28 | Outpatient (CLI) | payer MEDICARE, BC ==
[~2020-10-28] VITALS: Ht 160 cm; Wt 63.4 kg
[2020-10-28 13:20] VITALS: BP 117/66; PULSE 54
== END ==
LOC: COL.RAD 13:05
DX: R18.8 Other ascites (principal)

== ENCOUNTER → 2020-11-11 | Outpatient (CLI) | payer MEDICARE, BC ==
[2020-11-11 13:41] VITALS: BP 107/45; PULSE 78
[2020-11-11 14:50] VITALS: BP 112/49; PULSE 80
== END ==
LOC: COL.RAD 13:02
DX: R18.8 Other ascites (principal)
CPT/HCPCS: 19804

== ENCOUNTER → 2020-11-25 | Outpatient (CLI) | payer MEDICARE, BC ==
[~2020-11-25] VITALS: Ht 160 cm; Wt 65.5 kg
[2020-11-25 12:23] VITALS: BP 114/64; PULSE 74
[2020-11-25 13:26] VITALS: BP 120/67; PULSE 75
== END ==
LOC: COL.RAD 12:00
DX: R18.8 Other ascites (principal)
CPT/HCPCS: 19804

== ENCOUNTER → 2020-12-09 | Outpatient (CLI) | payer MEDICARE, BC ==
[~2020-12-09] VITALS: Ht 160 cm; Wt 55.0 kg
[2020-12-09 12:13] VITALS: BP 105/62; PULSE 77; TEMP 97.9
[2020-12-09 13:25] VITALS: BP 116/66; PULSE 82
== END ==
LOC: COL.RAD 12-01 12:00
DX: R18.8 Other ascites (principal)
CPT/HCPCS: 19804

== ENCOUNTER 2020-12-16 18:50 | Emergency (ER) | payer MEDICARE, BC ==
[~2020-12-16] VITALS: Ht 160 cm; Wt 65.9 kg
[~2020-12-16 18:50] MED LIST changes: -PEPPERMINT OIL 11 ML; -THERA-D 20002000 IU PO
[2020-12-16 19:35] VITALS: TEMP 98.3
[2020-12-16 20:40] LABS: BASO % 0.5 % (0.0-2.0); EOS # 0.1 (0.0-0.7); EOS % 2.2 % (0-4.0); GRAN # 3.1 (1.4-6.5); GRAN % 75.3 % (42.2-75.2); HEMOGLOBIN 11.7 g/dl (12.5-16.0); LYMPH # 0.5 (1.2-3.4); LYMPH % 11.4 % (20.0-51.0); MEAN CELL VOLUME 101 fl (80.0-100.0); MEAN CORPUSCULAR HEMOGLOBIN 33 pg (27.0-31.0); MEAN CORPUSCULAR HGB CONC 32 g/dl (33.0-37.0); MEAN PLATELET VOLUME 12.1 fl (7.4-10.4); MONO # 0.4 (0.1-0.6); MONO % 10.1 % (1.7-9.3); PLATELET COUNT 85 K/mm3 (130-400); REDCELL DISTRIBUTION WIDTH-CV 13.5 % (11.5-14.5)
[2020-12-16 20:41] LABS: HEMATOCRIT 36.4 % (37.0-47.0)
[2020-12-16 20:49] LABS: ALBUMIN 3.6 gm/dL (3.5-5.0); BILIRUBIN,TOTAL 0.8 mg/dL (0.0-1.0); CALCIUM 8.5 mg/dL (8.4-10.2); CREATININE, serum 4.29 (0.52-1.25); POTASSIUM 4.3 mmol/L (3.4-5.0); TOTAL PROTEIN 7.4 gm/dL (6.4-8.2)
[2020-12-16 22:02] VITALS: BP 128/54; PULSE 72
[2021-02-10] MEDS ORDERED: VENTOLIN0.09 MG IH (09:03)
== END 2020-12-16 22:05 | disposition home or self-care (01) ==
LOC: COL.ER 18:50
PROVIDERS: Physician Assistant
DX: S09.90XA Unspecified injury of head, initial encounter (principal); E11.22 Type 2 diabetes mellitus with diabetic chronic kidney disease; N18.6 End stage renal disease; Z79.02 Long term (current) use of antithrombotics/antiplatelets; W01.10XA Fall on same level from slipping, tripping and stumbling with subsequent striking against unspecified object, initial encounter

== ENCOUNTER → 2020-12-23 | Outpatient (CLI) | payer MEDICARE, BC ==
[~2020-12-23] VITALS: Ht 160 cm; Wt 65.3 kg
[~2020-12-23] MED LIST changes: +PEPPERMINT OIL 11 ML; +THERA-D 20002000 IU PO
[2020-12-23 12:10] VITALS: BP 130/78; PULSE 77
[2020-12-23 13:10] VITALS: BP 131/77; PULSE 88
== END ==
LOC: COL.RAD 11:52
DX: R18.8 Other ascites (principal)
CPT/HCPCS: 19804

== ENCOUNTER → 2021-01-06 | Outpatient (CLI) | payer MEDICARE, BC ==
[~2021-01-06] VITALS: Ht 160 cm; Wt 62.5 kg
[2021-01-06 12:03] VITALS: BP 124/62; PULSE 76
[2021-01-06 13:41] VITALS: BP 116/73; PULSE 85
== END ==
LOC: COL.RAD 11:46
DX: R18.8 Other ascites (principal)
CPT/HCPCS: 19804

== ENCOUNTER → 2021-01-20 | Outpatient (CLI) | payer MEDICARE, BC ==
[~2021-01-20] VITALS: Ht 160 cm; Wt 62.3 kg
[2021-01-20 12:06] VITALS: BP 112/55; PULSE 93; TEMP 97.6
[2021-01-20 13:10] VITALS: BP 106/56; PULSE 93
== END ==
LOC: COL.RAD 11:47
DX: R18.8 Other ascites (principal)
CPT/HCPCS: 19804

== ENCOUNTER 2021-01-24 16:02 | Inpatient (IN) | payer MEDICARE, BC ==
[~2021-01-24] VITALS: Ht 160 cm; Wt 60.1 kg
[~2021-01-24 16:02] MED LIST changes: -PEPPERMINT OIL 11 ML; -THERA-D 20002000 IU PO
[2021-01-24 16:52] LABS: BASO % 0.6 % (0.0-2.0); EOS # 0.1 K/mm3 (0.0-0.7); EOS % 2.9 % (0-4.0); GRAN # 3.7 K/mm3 (1.4-6.5); GRAN % 77.1 % (42.2-75.2); HEMATOCRIT 37.9 % (37.0-47.0); LYMPH # 0.5 K/mm3 (1.2-3.4); LYMPH % 11.1 % (20.0-51.0); MEAN CELL VOLUME 103 fl (80.0-100.0); MEAN CORPUSCULAR HEMOGLOBIN 33 pg (27.0-31.0); MEAN CORPUSCULAR HGB CONC 32 g/dl (33.0-37.0); MEAN PLATELET VOLUME 11.8 fl (7.4-10.4); MONO # 0.4 K/mm3 (0.1-0.6); MONO % 7.9 % (1.7-9.3); PLATELET COUNT 97 K/mm3 (130-400); RED BLOOD COUNT 3.68 M/mm3 (4.10-5.30); REDCELL DISTRIBUTION WIDTH-CV 12.9 % (11.5-14.5)
[2021-01-24 17:05] LABS: ALBUMIN 2.5 gm/dL (3.4-4.8); BILIRUBIN,TOTAL 0.4 mg/dL (0.2-1.2); CALCIUM 8.7 mg/dL (8.4-10.2); CREATININE, serum 4.13 mg/dL (0.57-1.11); POTASSIUM 3.7 mmol/L (3.5-4.5); TOTAL PROTEIN 6.8 gm/dL (6.2-8.1)
[2021-01-24 17:07] LABS: INR 1.1 (0.8-3.0); PROTHROMBIN TIME 12.3 SECONDS (9.7-12.8)
[2021-01-24 21:11] VITALS: BP 118/37; PULSE 72; TEMP 98.1
--- NOTE | 2021-01-24 21:30 | NUR ---
PATIENT JUST UP TO FLOOR FROM ER. PATIENT IS ALERT AND ORIENTED X4. PATIENT HAS LEFT HIP FRACTURE. CT FOR HEAD IS NEGATIVE AFTER FALL AT HOME. PATIENT IS DNR. PATIENT HAS FISTULA TO LEFT ARM. BRUIT AND THRILL PRESENT. PATIENT HAS RIGHT FOREARM IV. PATIENT IS ON GENERAL DIET. PATIENT HAS ASCITES FROM LIVER FAILURE ON ABDOMEN. STATES THAT SHE HAS A PARACENTESIS EVERY 2 WEEKS. PATIENT DENIES PAIN OR FURTHER NEEDS AT THIS TIME. CALL [facility] WITHIN REACH. ADMISSIONS ASSESSMENTS AND MED REC COMPLETE.
[2021-01-24] MEDS ORDERED: PEPPERMINT OIL 11 ML (21:42)
--- NOTE | 2021-01-24 23:00 | NUR ---
PATIENT ORDERED TO HAVE CATHETER PUT IN. ATTEMPTED 3 TIMES BY 3 DIFFERENT RNS ON FLOOR. PATIENT HAS KIDNEY FAILURE AND IS A DIALYSIS PATIENT, NO CATHETER BECAUSE PATIENT STATES SHE DOES NOT PRODUCE URINE.
--- NOTE | 2021-01-24 23:30 | NUR ---
PATIENT HAS SCD'S ON BILATERAL LOWER EXTREMITIES AND FLORES HOSE TO UNAFFECTED LEG. ICE TO LEFT HIP. IV FLUIDS INFUSING AT 75ML PER HOUR. NO FURTHER NEEDS AT THIS TIME. CALL LIGHT WITHIN REACH.
[2021-01-25] VITALS (7 sets, daily range): BP systolic 86–122; BP diastolic 35–56; PULSE 70–80; TEMP 97.4–98.1
--- NOTE | 2021-01-25 06:37 | NUR ---
PATIENT SLEPT OFF AND ON THROUGHOUT NIGHT. GIVEN MORPHINE ONCE AND PRESSURES WERE 80S OVER 40S. HOSPITALIST NOTIFIED. PATIENT GIVEN YEIMI PER ORDERS FOR PAIN. ICE TO LEFT HIP. NO FURTHER NEEDS AT THIS TIME. WILL REPORT TO DAYSHIFT.
--- NOTE | 2021-01-25 08:00 | NUR ---
Patient laying in bed, A&Ox3. VSS. IV CDI, fluids infusing. Fistula LUE CDI. Pain reported in left hip, ice applied and leg elevated on pillow. Patient NPO pending assessment from orthopedics. Patient aware. No further needs expressed. Call light within reach
[2021-01-25 09:08] LABS: HEMATOCRIT 37.7 % (37.0-47.0); HEMOGLOBIN 11.8 g/dl (12.5-16.0)
[2021-01-25 09:26] LABS: ALBUMIN 2.3 gm/dL (3.4-4.8); CALCIUM 8.3 mg/dL (8.4-10.2); CREATININE, serum 4.8 mg/dL (0.57-1.11); PHOSPHOROUS 4.3 mg/dL (2.3-4.7); POTASSIUM 3.8 mmol/L (3.5-4.5)
--- NOTE | 2021-01-25 13:32 | NUR ---
Sierra met with the pt, daughter present and answered questions for me)stated her preference to return home once medically stable. The pt lives at home with her daughter, florentino [phone]. The pt is independent on all adls, but does use a walker, cane. The pt PCP is and gets her medications from [facility]. The pt is on dialyisis. The pt has DPAO which is her daughters and florentino. Await further recommendations and follow up as needed. d/c: unknown.
--- NOTE | 2021-01-25 17:56 | NUR ---
Patient has been resting most of the shift, PT repositioned the patient for comfort and the patient has not complained of any pain. Ice on the left hip, pillow between knees. A&Ox3. VSS. IV CDI. Daughter at the bedside most of the shift. No further needs expressed. Call light within reach
[2021-01-26] VITALS (7 sets, daily range): BP systolic 80–132; BP diastolic 32–88; PULSE 67–83; TEMP 97.3–99.1
--- NOTE | 2021-01-26 12:13 | NUR ---
CHAPARRITA EUCEDA NOTIFIED OF BP 80/32. PT DENIES DIZZINESS OR LIGHTHEADEDNESS.
--- NOTE | 2021-01-26 12:36 | NUR ---
PT TO DIALYSIS AT THIS TIME.
--- NOTE | 2021-01-26 12:42 | NUR ---
Initial visit; Patient and her daughter thanked Delineator for looking in on Kristin, offering encouragement, prayer and God's blessings. Delineator will keep Kristin in her prayers as well and continue to check in on patient while she is at our hospital.
[2021-01-26 13:16] LABS: BASO % 0.4 % (0.0-2.0); EOS # 0.1 K/mm3 (0.0-0.7); EOS % 1.8 % (0-4.0); GRAN # 3.5 K/mm3 (1.4-6.5); GRAN % 77.2 % (42.2-75.2); LYMPH # 0.5 K/mm3 (1.2-3.4); LYMPH % 11.2 % (20.0-51.0); MEAN CELL VOLUME 103 fl (80.0-100.0); MEAN CORPUSCULAR HGB CONC 32 g/dl (33.0-37.0); MEAN PLATELET VOLUME 12.2 fl (7.4-10.4); MONO # 0.4 K/mm3 (0.1-0.6); MONO % 9.2 % (1.7-9.3); PLATELET COUNT 74 K/mm3 (130-400); RED BLOOD COUNT 2.98 M/mm3 (4.10-5.30); REDCELL DISTRIBUTION WIDTH-CV 12.8 % (11.5-14.5)
[2021-01-26 13:18] LABS: HEMATOCRIT 30.6 % (37.0-47.0); HEMOGLOBIN 9.7 g/dl (12.5-16.0); MEAN CORPUSCULAR HEMOGLOBIN 33 pg (27.0-31.0)
--- NOTE | 2021-01-26 13:23 | NUR ---
UPDATED CHERYL LEVINE ON CURRENT VITALS.
[2021-01-26 13:33] LABS: ALBUMIN 1.9 gm/dL (3.4-4.8); CREATININE, serum 6.37 mg/dL (0.57-1.11); MAGNESIUM 1.9 mg/dL (1.6-2.6); PHOSPHOROUS 4.8 mg/dL (2.3-4.7); POTASSIUM 4.6 mmol/L (3.5-4.5)
--- NOTE | 2021-01-26 15:35 | NUR ---
PATIENT TOLERATED HD TX WITH NO FLUID REMOVAL TODAY DUE TO HYPOTENSION. NEXT PLANNED HD TX ON Tuesday01/28/21 @ 0800.
[2021-01-26 17:41] LABS: HEMOGLOBIN 11.2 g/dl (12.5-16.0)
[2021-01-26 17:50] LABS: HEMATOCRIT 35.3 % (37.0-47.0)
[2021-01-27 04:06] VITALS: BP 99/37; PULSE 74; TEMP 98.4
[2021-01-27 06:50] LABS: MEAN CELL VOLUME 103 fl (80.0-100.0); MEAN CORPUSCULAR HGB CONC 32 g/dl (33.0-37.0); MEAN PLATELET VOLUME 12.2 fl (7.4-10.4); PLATELET COUNT 79 K/mm3 (130-400); RED BLOOD COUNT 2.88 M/mm3 (4.10-5.30); REDCELL DISTRIBUTION WIDTH-CV 12.9 % (11.5-14.5)
[2021-01-27 06:55] LABS: HEMATOCRIT 29.6 % (37.0-47.0); HEMOGLOBIN 9.4 g/dl (12.5-16.0); MEAN CORPUSCULAR HEMOGLOBIN 33 pg (27.0-31.0)
[2021-01-27 07:05] LABS: CALCIUM 8.3 mg/dL (8.4-10.2); CREATININE, serum 4.25 mg/dL (0.57-1.11); POTASSIUM 4.4 mmol/L (3.5-4.5)
[2021-01-27 07:07] LABS: BASO % 0.2 % (0.0-2.0); EOS # 0.1 K/mm3 (0.0-0.7); EOS % 1.8 % (0-4.0); GRAN # 3.4 K/mm3 (1.4-6.5); LYMPH # 0.5 K/mm3 (1.2-3.4); LYMPH % 10.9 % (20.0-51.0); MONO # 0.4 K/mm3 (0.1-0.6); MONO % 9.6 % (1.7-9.3)
[2021-01-27 07:34] VITALS: BP 105/46; PULSE 73; TEMP 98
[2021-01-27 08:36] LABS: BAND 2 % (0-10); LYMPHOCYTE 10 % (20.0-51.0); NEUTROPHILS 77 % (42.0-75.2); PLATELET ESTIMATE DECREASED (NORMAL)
--- NOTE | 2021-01-27 09:28 | NUR ---
Referral made to [facility] this a.m.
--- NOTE | 2021-01-27 10:44 | NUR ---
SW was informed that IPR denied d/t patient unable to tolerate 3 hours. Notified Mariangel. Referral sent to [facility]. Chair time for dialysis is M, W, F at 11:30. SW will continue following.
[2021-01-27 11:44] VITALS: BP 97/50; PULSE 72; TEMP 97.9
--- NOTE | 2021-01-27 12:47 | NUR ---
Patient alert and oriented, answers questions appropriately if given adequate time to answer. LLE with 1+edema noted, pulses palpable, sensation intact. Bilateral heels reddened, foam dressing applied. C/o left hip and pelvis pain with movement, subsides with repositioning. Abdomen rounded, firm per patients norm. RLQ reveals large hernia, patient states this has been there since 2012. Bowel sounds active x4 quads. +Flatus. FLORES hose and SCDs applied. ROM exercises reviewed with patient. No c/o at this time.
[2021-01-27] MEDS ORDERED: PLAVIX 75MG TAB75 MG PO (13:58)
[2021-01-27] MEDS ORDERED: VENTOLIN0.09 MG IH (13:58)
[2021-01-27] MEDS ORDERED: OMEGA-3 FISH1000 MG PO (13:58)
[2021-01-27] MEDS ORDERED: ROXICODONE 55 MG/TAB PO (13:59)
[2021-01-27] MEDS ORDERED: TYLENOL 500MG500 MG PO ×2 (13:59)
[2021-01-27] MEDS ORDERED: LEXAPRO 10MG10 MG PO (14:00)
[2021-01-27] MEDS ORDERED: PHOSLO667 MG PO (14:00)
[2021-01-27] MEDS ORDERED: ANTI-DIARRHEAL2 MG PO (14:01)
[2021-01-27] MEDS ORDERED: FLONASEALLERGY NS (14:01)
[2021-01-27] MEDS ORDERED: PROBIOTIC-MAJOR PO (14:01)
[2021-01-27] MEDS ORDERED: THERA-D 20002000 IU PO (14:02)
[2021-01-27] MEDS ORDERED: CENTRUM SILVER1 TAB PO (14:02)
--- NOTE | 2021-01-27 14:19 | NUR ---
Ki accepts patient to skilled care at [facility] and arranges facility with wheelchair to transport at 3:30. Daughter is with patient in room and was notified. Discharge orders faxed to [facility].
[2021-01-27 15:51] VITALS: BP 97/50; PULSE 72; TEMP 97.9
--- NOTE | 2021-01-27 16:08 | NUR ---
Patient transfered to [facility] via wheelchair with transporation staff. Paperwork sent. Attempt x1 to call report, left message. Will attempt again.
--- NOTE | 2021-01-27 17:03 | NUR ---
Attempt x1 at 1630 to call report, no answer. Attempt at this time to call report to [facility], transfered to [facility], report given.
[2021-02-10] MEDS ORDERED: VENTOLIN0.09 MG IH (09:03)
== END 2021-01-27 16:00 | DRG 535 ==
LOC: COL.ER 16:02 → SURG 19:13
PROVIDERS: Internal Medicine; Personal Emergency Response Attendant; Physician Assistant; ADMIT Internal Medicine
PROC: 5A1D70Z Performance of Urinary Filtration, Intermittent, Less than 6 Hours Per Day (ICD-10-PCS; principal; 2021-01-26)
DX: S32.435A Nondisplaced fracture of anterior column [iliopubic] of left acetabulum, initial encounter for closed fracture (principal); N18.6 End stage renal disease; S32.592A Other specified fracture of left pubis, initial encounter for closed fracture; N25.81 Secondary hyperparathyroidism of renal origin; I12.0 Hypertensive chronic kidney disease with stage 5 chronic kidney disease or end stage renal disease; R18.8 Other ascites; S32.445A Nondisplaced fracture of posterior column [ilioischial] of left acetabulum, initial encounter for closed fracture; S09.90XA Unspecified injury of head, initial encounter; K74.60 Unspecified cirrhosis of liver; K72.10 Chronic hepatic failure without coma; Z66 Do not resuscitate; E11.22 Type 2 diabetes mellitus with diabetic chronic kidney disease; K52.9 Noninfective gastroenteritis and colitis, unspecified; E78.5 Hyperlipidemia, unspecified; K58.0 Irritable bowel syndrome with diarrhea; D63.1 Anemia in chronic kidney disease; F32.A Depression, unspecified; D69.6 Thrombocytopenia, unspecified; M10.9 Gout, unspecified; Z96.653 Presence of artificial knee joint, bilateral; Z20.822 Contact with and (suspected) exposure to COVID-19; W18.30XA Fall on same level, unspecified, initial encounter; Z88.0 Allergy status to penicillin; Z88.8 Allergy status to other drugs, medicaments and biological substances; Z99.2 Dependence on renal dialysis; Z86.73 Personal history of transient ischemic attack (TIA), and cerebral infarction without residual deficits; Z79.02 Long term (current) use of antithrombotics/antiplatelets; Y93.89 Activity, other specified; Y92.003 Bedroom of unspecified non-institutional (private) residence as the place of occurrence of the external cause
CPT/HCPCS: 99222-AI; 99232-AI; 99239; A9284; J1170; J1644; J2270; J2405; J7030; J7050; Q5105

== ENCOUNTER → 2021-02-03 | Outpatient (CLI) | payer MEDICARE, BC ==
[~2021-02-03] MED LIST changes: +PEPPERMINT OIL 11 ML; +THERA-D 20002000 IU PO
[2021-02-03 12:25] VITALS: BP 104/53; PULSE 73
== END ==
LOC: COL.RAD 12:00
DX: R18.8 Other ascites (principal)

== ENCOUNTER 2021-02-10 11:00 | Emergency (ER) | payer MEDICARE, BC ==
[~2021-02-10] VITALS: Ht 160 cm; Wt 59.1 kg
[2021-02-10 11:26] VITALS: TEMP 97.1
[2021-02-10 13:19] LABS: TSH w REFLEX 1.44 uIU/mL (0.350-4.940)
[2021-02-10 13:20] LABS: TROPONIN-I 0.168 ng/mL (0.00-0.033)
[2021-02-10 14:14] VITALS: BP 121/54; PULSE 79
== END 2021-02-10 14:20 | disposition home or self-care (01) ==
LOC: COL.ER 11:00
PROVIDERS: Emergency Medicine
DX: E11.22 Type 2 diabetes mellitus with diabetic chronic kidney disease (principal); I12.0 Hypertensive chronic kidney disease with stage 5 chronic kidney disease or end stage renal disease; N18.6 End stage renal disease; D63.1 Anemia in chronic kidney disease; Z99.2 Dependence on renal dialysis; Z20.822 Contact with and (suspected) exposure to COVID-19; Z87.891 Personal history of nicotine dependence

== ENCOUNTER → 2021-02-10 | Outpatient (CLI) | payer MEDICARE, BC ==
[2021-02-10 08:57] VITALS: BP 103/59; PULSE 83; TEMP 98.3
[2021-02-10 10:20] VITALS: BP 148/67; PULSE 86
--- NOTE | 2021-02-10 10:20 | NUR ---
DR STEWART REMOVED 4200 CC OF CLEAR YELLOW FLUID FROM THE ABDOMEN.
--- NOTE | 2021-02-10 10:29 | NUR ---
PT IS NOT FEELING VERY GOOD. SHE FEELS VERY TIRED, NAUESATED AND SOB. VSS. OFFERED WATER AND CRACKERS, REFUSED.
== END ==
LOC: COL.RAD 08:15
DX: R18.8 Other ascites (principal)
CPT/HCPCS: 19804

== ENCOUNTER → 2021-02-10 | Outpatient (CLI) | payer MEDICARE, BC ==
[2021-02-10 09:51] LABS: BASO % 0.6 % (0.0-2.0); EOS # 0.2 K/mm3 (0.0-0.7); EOS % 2.4 % (0-4.0); GRAN # 5.7 K/mm3 (1.4-6.5); GRAN % 82.3 % (42.2-75.2); HEMOGLOBIN 11.2 g/dl (12.5-16.0); LYMPH # 0.6 K/mm3 (1.2-3.4); LYMPH % 8.8 % (20.0-51.0); MEAN CELL VOLUME 107 fl (80.0-100.0); MEAN CORPUSCULAR HEMOGLOBIN 33 pg (27.0-31.0); MEAN CORPUSCULAR HGB CONC 30 g/dl (33.0-37.0); MEAN PLATELET VOLUME 11.3 fl (7.4-10.4); MONO # 0.4 K/mm3 (0.1-0.6); MONO % 5.5 % (1.7-9.3); PLATELET COUNT 143 K/mm3 (130-400); RED BLOOD COUNT 3.44 M/mm3 (4.10-5.30); REDCELL DISTRIBUTION WIDTH-CV 14.1 % (11.5-14.5)
[2021-02-10 09:58] LABS: HEMATOCRIT 36.9 % (37.0-47.0)
[2021-02-10 10:19] LABS: ALBUMIN 2.6 gm/dL (3.4-4.8); BILIRUBIN,TOTAL 0.6 mg/dL (0.2-1.2); CALCIUM 8.8 mg/dL (8.4-10.2); CREATININE, serum 4.25 mg/dL (0.57-1.11); POTASSIUM 4.3 mmol/L (3.5-4.5); TOTAL PROTEIN 6.4 gm/dL (6.2-8.1)
== END ==
LOC: COL.LAB 09:12
PROVIDERS: Internal Medicine
DX: K72.10 Chronic hepatic failure without coma (principal); N18.6 End stage renal disease

== ENCOUNTER → 2021-02-26 | Outpatient (CLI) | payer MEDICARE, BC ==
[2021-02-26 12:12] VITALS: BP 105/69; PULSE 57; TEMP 97.6
--- NOTE | 2021-02-26 12:47 | NUR ---
Pt unable to complete procedure, pt in too much pain. Pt left with aide to take pt back to senior living. Aide given instructions to allow pt to eat in the morning if her procedure is around noon and to please given her a pain pill and her morning meds with water and she can drink water up until the time of the procedure.
== END ==
LOC: COL.RAD 11:50
DX: R18.8 Other ascites (principal)

== ENCOUNTER → 2021-03-02 | Outpatient (CLI) | payer MEDICARE, BC | LOC: ZLAB.STJ 17:55 | DX: E11.22 Type 2 diabetes mellitus with diabetic chronic kidney disease (principal); N18.9 Chronic kidney disease, unspecified ==

== ENCOUNTER → 2021-03-09 | Outpatient (CLI) | payer MEDICARE, BC ==
[2021-03-09 12:39] LABS: HEMOGLOBIN 11.1 g/dl (12.5-16.0); MEAN CELL VOLUME 108 fl (80.0-100.0); MEAN CORPUSCULAR HEMOGLOBIN 33 pg (27.0-31.0); MEAN CORPUSCULAR HGB CONC 31 g/dl (33.0-37.0); MEAN PLATELET VOLUME 11.8 fl (7.4-10.4); PLATELET COUNT 141 K/mm3 (130-400); RED BLOOD COUNT 3.38 M/mm3 (4.10-5.30); REDCELL DISTRIBUTION WIDTH-CV 15.5 % (11.5-14.5)
[2021-03-09 12:40] LABS: ALBUMIN 2.4 gm/dL (3.4-4.8); BILIRUBIN,TOTAL 0.6 mg/dL (0.2-1.2); CALCIUM 9.6 mg/dL (8.4-10.2); HEMATOCRIT 36.4 % (37.0-47.0); POTASSIUM 4.3 mmol/L (3.5-4.5); TOTAL PROTEIN 6.7 gm/dL (6.2-8.1)
[2021-03-09 12:41] LABS: CREATININE, serum 5.35 mg/dL (0.57-1.11)
== END ==
LOC: ZLAB.STJ 12:17
PROVIDERS: Internal Medicine Gastroenterology
DX: K74.60 Unspecified cirrhosis of liver (principal)

== ENCOUNTER → 2021-03-10 | Outpatient (CLI) | payer MEDICARE, BC | LOC: COL.RAD 08:57 | DX: K74.60 Unspecified cirrhosis of liver (principal); N26.1 Atrophy of kidney (terminal) ==

== ENCOUNTER → 2021-03-26 | Outpatient (CLI) | payer MEDICARE, BC ==
--- NOTE | 2021-03-26 12:15 | NUR ---
Pt taken straight to ultrasound to scan prior to admiting due to possible decreased fluid in abdomen.
--- NOTE | 2021-03-26 12:22 | NUR ---
Procedure canceled not enough fluid to drain. [facility] notified of canceled procedure.
== END ==
LOC: COL.RAD 03-17 12:00
DX: R18.8 Other ascites (principal)

== ENCOUNTER 2021-04-07 12:05 | Inpatient (IN) | payer MEDICARE, BC ==
[~2021-04-07] VITALS: Ht 152.4 cm; Wt 59.6 kg
[2021-04-07 12:35] LABS: BASO % 0.3 % (0.0-2.0); EOS % 0.1 % (0.0-4.0); GRAN # 7.6 K/mm3 (1.4-6.5); GRAN % 85.3 % (42.2-75.2); HEMOGLOBIN 11.3 g/dl (12.5-16.0); LYMPH # 0.7 K/mm3 (1.2-3.4); LYMPH % 8.1 % (20.0-51.0); MEAN CELL VOLUME 106 fl (80.0-100.0); MEAN CORPUSCULAR HEMOGLOBIN 35 pg (27-31); MEAN CORPUSCULAR HGB CONC 33 g/dl (33.0-37.0); MEAN PLATELET VOLUME 10.4 fl (7.4-10.4); MONO # 0.5 K/mm3 (0.1-0.6); MONO % 5.8 % (1.7-9.3); PLATELET COUNT 137 K/mm3 (130-400); RED BLOOD COUNT 3.28 M/mm3 (4.10-5.30); REDCELL DISTRIBUTION WIDTH-CV 18.3 % (11.5-14.5)
[2021-04-07 12:37] LABS: HEMATOCRIT 34.7 % (37.0-47.0)
[2021-04-07 12:43] LABS: INR 1.4 (0.8-3.0); PROTHROMBIN TIME 15.2 SECONDS (9.7-12.8)
[2021-04-07 12:50] LABS: ALBUMIN 2.2 gm/dL (3.4-4.8); BILIRUBIN,TOTAL 1.1 mg/dL (0.2-1.2); CALCIUM 8.5 mg/dL (8.4-10.2); CREATININE, serum 3.33 mg/dL (0.57-1.11); MAGNESIUM 2.1 mg/dL (1.6-2.6); POTASSIUM 3.8 mmol/L (3.5-4.5); TOTAL PROTEIN 6.3 gm/dL (6.2-8.1)
[2021-04-07 12:58] LABS: TROPONIN-I 0.337 ng/mL (0.00-0.033)
[2021-04-07] MEDS ORDERED: ZYLOPRIM 100MG100 MG PO (14:18)
[2021-04-07] MEDS ORDERED: MASON NATURAL2000 IU PO (14:19)
[2021-04-07] MEDS ORDERED: JUVEN1 PDR (14:22)
[2021-04-07] MEDS ORDERED: MILK OF MA400 MG/52 (14:26)
[2021-04-07] MEDS ORDERED: OXAYDO7.5 MG PO (14:27)
[2021-04-07 17:02] VITALS: BP 112/50; PULSE 70; TEMP 97.9
[2021-04-07 20:20] VITALS: BP 100/57; PULSE 92; TEMP 97.9
[2021-04-07 23:51] VITALS: BP 97/54; PULSE 82; TEMP 98.1
[2021-04-08 05:29] VITALS: BP 106/43; PULSE 88; TEMP 97.5
--- NOTE | 2021-04-08 06:09 | NUR ---
AT [address] COFFEY PT IS HYPOGLYCEMIC AND HAS SWALLOWING PRECAUTIONS AND CURRENTLY CONCERNED OF PO INTAKE. THIS NURSE RECEIVED VORB FOR D10W AT 35ML/HR AND TO TITRATE FOR BS OVER 90. THIS NURSE CONTACTED PHARMACY AND WILL IMPLEMENT ORDER. PT CHRISTOPHER, A/OX4, ABLE TO FOLLOW SIMPLE COMMANDS, Lissett TRINIDAD
[2021-04-08 06:31] LABS: BASO % 0.4 % (0.0-2.0); EOS # 0.1 K/mm3 (0.0-0.7); EOS % 1.3 % (0.0-4.0); GRAN # 3.7 K/mm3 (1.4-6.5); GRAN % 79.2 % (42.2-75.2); LYMPH # 0.4 K/mm3 (1.2-3.4); LYMPH % 8.7 % (20.0-51.0); MEAN CELL VOLUME 106 fl (80.0-100.0); MEAN CORPUSCULAR HGB CONC 33 g/dl (33.0-37.0); MONO # 0.5 K/mm3 (0.1-0.6); PLATELET COUNT 92 K/mm3 (130-400)
[2021-04-08 06:44] LABS: HEMATOCRIT 27.5 % (37.0-47.0); MEAN CORPUSCULAR HEMOGLOBIN 35 pg (27-31)
[2021-04-08 06:55] LABS: ALBUMIN 1.7 gm/dL (3.4-4.8); CALCIUM 7.9 mg/dL (8.4-10.2); CREATININE, serum 3.61 mg/dL (0.57-1.11); PHOSPHOROUS 0.8 mg/dL (2.3-4.7); POTASSIUM 3.8 mmol/L (3.5-4.5)
[2021-04-08 08:37] VITALS: BP 115/42; PULSE 87; TEMP 97.8
--- NOTE | 2021-04-08 12:31 | NUR ---
PATIENT HYPOTENSIVE WITH NO FLUID REMOVAL DURING HD TX & GIVEN 350 ML FLUID INCLUDING THE ALBUMIN DOSE. PATIENT DENIED ANY LIGHTHEADEDNESS. NEXT PLANNED HD TX ON Tuesday04/10/21 @ 0800.
[2021-04-08 12:42] VITALS: BP 100/52; PULSE 81; TEMP 98.1
--- NOTE | 2021-04-08 16:35 | NUR ---
Due to patient's mental status, phone call made to the patient's daughter Yesica ([phone]). Yesica places the phone on speaker for her to hear. Patient currently is at [facility] and has been there for 3-4 weeks post snf stay at [facility]. Family reports that the patient has been independent with her ADL's up until her fall in January. Patient would use a walker to assist with mobility. PCP is Dr. Maria Ines Drew, but she also is followed by Dr. Bullard, Dr. Medrano and saw Ortho last week. She utilizes [facility] for medications but has been using [facility] while at [facility]. Yesica reports that the patient does have a DPOA-HC and [facility] has a copy. Informed her i will call [facility] and have them fax me a copy of it. Family is asking about what the finding were from today's testing. Offered for the patient's RN to call and give a clinical update, but Yesica states that her will be coming up here tonight to bring the patient some of her things. RN Notified. Yesica also verbalizes that the ultimate goal would be to bring the patient home and is wanting to know the treatment plan but was informed that the physician "wants to talk to my mom first before talking with me". Yesica states that they are paying [facility] out of pocket to hold the patient's bed. Discharge plan: [facility] pending pt/ot rec's
[2021-04-08 16:47] VITALS: BP 104/36; PULSE 115; TEMP 97.4
[2021-04-08 18:27] VITALS: BP 133/73; PULSE 96; TEMP 97.1
--- NOTE | 2021-04-08 18:28 | NUR ---
DC'D HD TX 30 MINS EARLY ON PATIENT REQUEST FOR C/O WEAVER & BLE PAIN WHICH DID NOT RESOLVE WITH MACHINE CHANGES & TYLENOL. REMOVED [address] COFFEY AWARE OF ABOVE.
--- NOTE | 2021-04-08 19:13 | NUR ---
PT HAS HAD A ROUGH DAY. SHE WAS HYPOGLYCEMIC AT THE BEGINNING OF THE DAY, AND WAS STARTED ON D10NS. SHE BECAME HYPOTENSIVE DURING DIALYSIS. SHE HAS BEEN IN SEVERE PAIN ALL DAY, DESPITE ASKING THE PROVIDER FOR IV PAIN MEDICATIONS. AFTER THE PATIENT HAD A SWALLOW STUDY DONE BY , THE PATIENT ASPIRATED THE APPLESAUCE. CONTACTED DR. COFFEY, WHO THEN MADE HER NPO, AND DID AT THAT TIME ORDER DILAUDID 0.5MG Q2H. AFTER PAIN MEDICATON WAS GIVEN THE PATIENT DID FINALLY GET RELIEF.
--- NOTE | 2021-04-08 22:45 | NUR ---
Patient assessed around 2150. Alert with confusion. Did complain about pain to left hip. Given PRN Dilaudid for pain. Peripheral IV to right forearm, with fluids running per orders. Telemetry in place: sinus dysrhythmia. Patient voices no questions, needs, or concerns at this time. In bed with call light within reach. Bed alarm on.
[2021-04-09 00:13] VITALS: BP 112/53; PULSE 82; TEMP 98.1
[2021-04-09 04:25] VITALS: BP 104/44; PULSE 86
--- NOTE | 2021-04-09 05:34 | NUR ---
Patient has been resting in bed with call light within reach. Received PRN Dilaudid for pain as requested. Voices no questions, needs, or concerns at this time. Continues on IV fluids per orders.
[2021-04-09 07:52] VITALS: BP 90/70; PULSE 103; TEMP 98
--- NOTE | 2021-04-09 08:41 | NUR ---
Patient asleep in bed upon entry to room. Multiple skin issues noted in shift assessment. Patient is lethargic and does not follow commands. Patient repositioned to back. No s/s of pain or discomfort at this time. Flonase not given. VSS. Call light in reach. Fall percautions in place.
[2021-04-09 11:41] VITALS: BP 71/52; PULSE 102; TEMP 97.7
--- NOTE | 2021-04-09 13:59 | NUR ---
Call made to patient's daughter, Yesica and son-in-law. We spoke mostly to the GWEN but Yesica was on speaker phone. Family had questions about hospice and whether or not it could be in-home or at a facility. We discussed the various agencies and checked that [facility] had a bed available if they wanted to use their services. Family stated they were planning to come in and visit the patient as well as look into the various hospice agencies and get back to us on their decision. Notified ARIELLE, primary RN, and Dr. Bullard of our discussion and the current plan
--- NOTE | 2021-04-09 15:41 | NUR ---
ARIELLE met with the patient's son in law and [place] Figueroa about different hospice options. Patient's GWEN Darwin, states that he and the patient's daughter Yesica would like the patient to go to the [facility] upon discharge. Sammi with [facility] notified with referral. Sammi states they do have a bed available but cannot accept an admission tonight but can first thing in the morning. Family is still present at bedside and notified of the above. Mariangel called to confirm/place comfort care orders. Pierre with [facility] notified of the above and states that Yesica and Darwin had already removed the hold on the patient's room. Request made for [facility] to fax a copy of the patient's DNR and DPOA-HC over to the medical unit. Discharge plan: [facility] 04/10
--- NOTE | 2021-04-09 17:02 | NUR ---
Sammi from [facility] is not in tomorrow and calls asking to secure a time for transport. Agreement on 1100 am for the patient to transport to [facility] at 1100 by EMS. Sammi states that she will get in contact with the patinet's family about the above and to set a time to sign paperwork.
--- NOTE | 2021-04-09 17:38 | NUR ---
Patient transitioned to comfort care. IV removed. Catheter intact, no signs of phlebitis. Lidocaine patches placed. Kpad in use. PRN pain medication given. Patient repositioned Q2. Family updated on plan of care. Family at the bedside. Call light in reach. Fall percautions in place.
[2021-04-09 20:06] VITALS: BP 119/42; PULSE 92; TEMP 98.1
--- NOTE | 2021-04-09 21:47 | NUR ---
Patient assessed around 2039. Oral hygiene provided. Given PRN Roxicodone for s/sx of pain. Given more around 2119, as patigabinon continues to state that she was hurting all over. Son-in-law and grandson left, daughter remains with patient during the night. Encouraged to call when patient starts showing s/sx of pain, went over what to watch for, encouraged to call with any questions, needs, or concerns, and voiced understanding.
--- NOTE | 2021-04-10 06:06 | NUR ---
Received PRN Roxanol during the night. Seems to be resting in bed. Daughter remains at bedside. Encouraged to call with any questions, needs, or concerns.
[2021-04-10] MEDS ORDERED: ROXANOL 20MG20 MG/ML PO ×2 (10:11→11:04)
[2021-04-10] MEDS ORDERED: TRANSDERM-0.5 MG/21 TD (10:11)
[2021-04-10] MEDS ORDERED: ASPERCREME1 EACH TP (10:23)
--- NOTE | 2021-04-10 11:58 | NUR ---
As per previous discharge plans from 04/09/2021, [employer] social worker arranged for [facility] to transport patient to the [facility] this date at 11:00. Patient's family is aware of transfer. Worker spoke with nurse at [facility] that accepts patient. Worker faxed orders to [facility].
--- NOTE | 2021-04-10 12:00 | NUR ---
Shift assessment performed. Scheduled medications given. PRN pain medication given. Patient able to speak, but is not alert or oriented. Skin issues noted in assessment. Patient deemed fit for transfer to [facility]. Report called to [facility]. EMS transporting.
== END 2021-04-10 11:45 | disposition hospice, inpatient (51) | DRG 637 ==
LOC: COL.ER 12:05 → MEDICAL 13:45
PROVIDERS: Emergency Medicine; Registered Nurse; ADMIT Internal Medicine Nephrology
PROC: 5A1D70Z Performance of Urinary Filtration, Intermittent, Less than 6 Hours Per Day (ICD-10-PCS; principal; 2021-04-08)
DX: E11.649 Type 2 diabetes mellitus with hypoglycemia without coma (principal); E43 Unspecified severe protein-calorie malnutrition; I12.0 Hypertensive chronic kidney disease with stage 5 chronic kidney disease or end stage renal disease; E87.2 Acidosis; R18.8 Other ascites; I48.91 Unspecified atrial fibrillation; N18.6 End stage renal disease; N25.81 Secondary hyperparathyroidism of renal origin; E86.0 Dehydration; K72.10 Chronic hepatic failure without coma; K52.9 Noninfective gastroenteritis and colitis, unspecified; E78.5 Hyperlipidemia, unspecified; E11.22 Type 2 diabetes mellitus with diabetic chronic kidney disease; D63.1 Anemia in chronic kidney disease; M10.9 Gout, unspecified; R62.51 Failure to thrive (child); Z96.652 Presence of left artificial knee joint; Z20.822 Contact with and (suspected) exposure to COVID-19; Z86.73 Personal history of transient ischemic attack (TIA), and cerebral infarction without residual deficits; Z79.02 Long term (current) use of antithrombotics/antiplatelets; Z88.0 Allergy status to penicillin; Z51.5 Encounter for palliative care; Z68.21 Body mass index [BMI] 21.0-21.9, adult; Z23 Encounter for immunization
CPT/HCPCS: J1170; J1644; J7030; J7042; P9047; Q5105